=== PATIENT | female | born 1945 | race Hispanic/Latino ===

== ENCOUNTER 2019-03-03 10:38 | Emergency (ER) | payer OTHER ==
--- NOTE | 2019-03-03 12:41 | RAD REPORT ---
EXAM DESCRIPTION: CT - C Spine Wo Con - 03/03/2019 12:27 pm CLINICAL HISTORY: Left arm radiculopathy COMPARISON: None. TECHNIQUE: Computed axial tomography of the cervical spine were obtained with sagittal and coronal r econstruction images generated and reviewed. All CT scans are performed using dose optimization technique as appropriate and may include automated exposure control or mA/KV adjustment according to patient size. FINDINGS: A cervical fracture is not seen. Loss of the normal lordosis of the cervical spine may be secondary to muscle spasm. Slight anterior subluxation C3 on C4. Spondylosis C4-5 resulting mild left foraminal stenosis Disc bulge and osteophytes C5-6 results in moderate left foraminal stenosis thecal sac measures 8 mil limeters Disc bulge and osteophytes at C6-7 narrow the thecal sac is 7 millimeters. Moderate bilateral foramin al stenosis IMPRESSION: A cervical fracture is not seen. 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
--- NOTE | 2019-03-03 13:30 | ER ---
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 Denies fever and cough. Transition of care: patient was not received from another setting of care. Onset of symptoms was February 24, 2019. Risk Assessment: Do you want to hurt yourself or someone else? Patient reports no desire to harm self or others. Initial Sepsis Screen: Does the patient meet any 2 criteria? No. Patient's initial sepsis screen is negative. Does the patient have a suspected source of infection? No. Patient's initial sepsis screen is negative. Care prior to arrival: None. 11:03 Method Of Arrival: Ambulatory sv 11:03 Acuity: SOCO 3 sv 11:08 Note science interpreter used #[id number]. sv Triage Assessment: 11:03 General: Appears in no apparent distress. uncomfortable, Behavior is calm, cooperative, sv appropriate for age. Pain: Complains of pain in left zygomatic area, left cheek, left mandible and left arm and left neck. Neuro: Level of Consciousness is awake, alert, obeys commands, Gait is steady. Respiratory: Respiratory effort is even, unlabored. Historical: - Allergies: 11:07 No Known Allergies; sv - PMHx: 11:07 Thyroid problem; Diabetes - NIDDM; sv - PSHx: 11:07 Pacemaker; sv - Immunization history:: Flu vaccine status is unknown. - Social history:: Smoking status: unknown. - Ebola Screening: : No symptoms or risks identified at this time. Screenin:59 Abuse screen: Denies threats or abuse. Denies injuries from another. Nutritional mg2 screening: No deficits noted. Tuberculosis screening: No symptoms or risk factors identified. Fall Risk None identified. Assessment: 12:30 General: Appears in no apparent distress. comfortable, Behavior is calm, cooperative. mg2 Pain: Complains of pain in arm, and face. Neuro: Level of Consciousness is awake, alert, obeys commands, Oriented to person, place, time, situation. Cardiovascular: Capillary refill < 3 seconds Patient's skin is warm and dry. Respiratory: Airway is patent Respiratory effort is even, unlabored, Respiratory pattern is regular, symmetrical. GI: No signs and/or symptoms were reported involving the gastrointestinal system. : No signs and/or symptoms were reported regarding the genitourinary system. EENT: No signs and/or symptoms were reported regarding the EENT system. Derm: Skin is intact, is healthy with good turgor, Skin is pink, warm \T\ dry. normal. Musculoskeletal: Circulation, motion, and sensation intact. Capillary refill < 3 seconds. Vital Signs: 11:07 BP 151 / 87; Pulse 78; Resp 16; Temp 98; Pulse Ox 98% ; Weight 68.04 kg; Height 5 ft. 3 sv in. (160.02 cm); Pain 10/10; 12:30 BP 135 / 78; Pulse 81; Resp 18; Temp 98; Pulse Ox 100% on R/A; mg2 13:45 BP 134 / 78; Pulse 80; Resp 18; Temp 98; Pulse Ox 100% on R/A; mg2 11:07 Body Mass Index 26.57 (68.04 kg, 160.02 cm) sv ED Course: 10:40 Patient arrived in ED. as 10:40 Pop Millan DO is Private Physician. as 11:06 Triage completed. sv 11:07 Arm band placed on. sv 11:59 Reji Venegas, RN is Primary Nurse. mg2 12:00 No provider procedures requiring assistance completed. Patient did not have IV access mg2 during this emergency room visit. 12:10 Musa Shirley MD is Attending Physician. kdr 12:29 CT C Spine In Process Unspecified. EDMS 13:28 Pop Millan DO is Referral Physician. kdr 13:44 Patient has correct armband on for positive identification. Pulse ox on. NIBP on. Door mg2 closed. Warm blanket given. Administered Medications: 13:43 Drug: predniSONE 40 mg Route: PO; mg2 13:43 Follow up: Response: No adverse reaction; Medication administered at discharge. mg2 13:43 Drug: Ibuprofen 600 mg Route: PO; mg2 13:43 Follow up: Response: No adverse reaction; Medication administered at discharge. mg2 Outcome: 13:29 Discharge ordered by . kdr 13:40 Discharged to home ambulatory. mg2 13:40 Condition: stable 13:40 Discharge instructions given to patient, Instructed on discharge instructions, follow mg2 up and referral plans. medication usage, Demonstrated understanding of instructions, follow-up care, medications, Prescriptions given X 2. 13:45 Patient left the ED. mg2 Signatures: Dispatcher [employer] EDKarissa Rhodes RN RN sv Musa Shirley MD MD kdr Martinez, Amelia as Gardose, Michele, RN RN mg2
--- NOTE | 2019-03-03 13:30 | EDPHYS ---
Physician Documentation [facility] Name: Nicolasa Dooley Age: 74 yrs Sex: Female : 1945 Arrival Date: 03/03/2019 Time: 10:40 Bed 23 Private MD: Himanshu Millanh ED Physician Musa Shirley HPI: 03/03 18:34 This 74 yrs old Female presents to ER via Ambulatory with complaints of Facial kdr Pain, Arm Pain. 18:34 The patient or guardian complains of pain, that is acute. The complaints affect the kdr anterior aspect of left shoulder, left axilla, left bicep, left antecubital area, dorsal aspect of left forearm, left wrist, left hand, posterior aspect of left shoulder, left tricep, left elbow, palmar aspect of left forearm, left upper arm and left forearm. Context: The problem was sustained at home, resulted from unknown cause. Onset: The symptoms/episode began/occurred gradually, 1 week(s) ago. Treatment prior to arrival includes: no previous treatment. Modifying factors: The symptoms are alleviated by nothing. the symptoms are aggravated by nothing. Associated signs and symptoms: The patient has no apparent associated signs or symptoms. Severity of symptoms: At their worst the symptoms were mild, moderate, just prior to arrival, in the emergency department the symptoms are unchanged. The patient has not experienced similar symptoms in the past. The patient has not recently seen a physician. The patient c/o persistent pain for about one week in her left neck, face, and arm for about a week or more. Nothing effects it and it is not relived by any action.. Historical: - Allergies: 11: No Known Allergies; sv - PMHx: 11:07 Thyroid problem; Diabetes - NIDDM; sv - PSHx: 11:07 Pacemaker; sv - Immunization history:: Flu vaccine status is unknown. - Social history:: Smoking status: unknown. - Ebola Screening: : No symptoms or risks identified at this time. ROS: 18:34 Constitutional: Negative for fever, chills, and weight loss, Eyes: Negative for injury, kdr pain, redness, and discharge, ENT: Negative for injury, pain, and discharge, Cardiovascular: Negative for chest pain, palpitations, and edema, Respiratory: Negative for shortness of breath, cough, wheezing, and pleuritic chest pain, Abdomen/GI: Negative for abdominal pain, nausea, vomiting, diarrhea, and constipation, Back: Negative for injury and pain, : Negative for injury, bleeding, discharge, and swelling, Skin: Negative for injury, rash, and discoloration, Neuro: Negative for headache, weakness, numbness, tingling, and seizure activity. Psych: Negative for depression, anxiety, suicide ideation, homicidal ideation, and hallucinations, Allergy/Immunology: Negative for hives, rash, and allergies, Endocrine: Negative for neck swelling, polydipsia, polyuria, polyphagia, and marked weight changes, Hematologic/Lymphatic: Negative for swollen nodes, abnormal bleeding, and unusual bruising. 18:34 Neck: Positive for pain at rest, Negative for injury or acute deformity, pain with movement, stiffness, swelling, swollen nodes, tenderness, bony tenderness. 18:34 MS/extremity: Positive for pain, of the left arm, Negative for decreased range of motion, deformity, paresthesias, puncture, swelling, tenderness, tingling. Exam: 18:34 Constitutional: This is a well developed, well nourished patient who is awake, alert, kdr and in no acute distress. Head/Face: Normocephalic, atraumatic. Eyes: Pupils equal round and reactive to light, extra-ocular motions intact. Lids and lashes normal. Conjunctiva and sclera are non-icteric and not injected. Cornea within normal limits. Periorbital areas with no swelling, redness, or edema. ENT: Nares patent. No nasal discharge, no septal abnormalities noted. Tympanic membranes are normal and external auditory canals are clear. Oropharynx with no redness, swelling, or masses, exudates, or evidence of obstruction, uvula midline. Mucous membranes moist. Neck: Trachea midline, no thyromegaly or masses palpated, and no cervical lymphadenopathy. Supple, full range of motion without nuchal rigidity, or vertebral point tenderness. No Meningismus. Chest/axilla: Normal chest wall appearance and motion. Nontender with no deformity. No lesions are appreciated. Cardiovascular: Regular rate and rhythm with a normal S1 and S2. No gallops, murmurs, or rubs. Normal PMI, no JVD. No pulse deficits. Respiratory: Lungs have equal breath sounds bilaterally, clear to auscultation and percussion. No rales, rhonchi or wheezes noted. No increased work of breathing, no retractions or nasal flaring. Abdomen/GI: Soft, non-tender, with normal bowel sounds. No distension or tympany. No guarding or rebound. No evidence of tenderness throughout. Back: No spinal tenderness. No costovertebral tenderness. Full range of motion. Skin: Warm, dry with normal turgor. Normal color with no rashes, no lesions, and no evidence of cellulitis. MS/ Extremity: Pulses equal, no cyanosis. Neurovascular intact. Full, normal range of motion. Neuro: Awake and alert, GCS 15, oriented to person, place, time, and situation. Cranial nerves II-XII grossly intact. Motor strength 5/5 in all extremities. Sensory grossly intact. Cerebellar exam normal. Normal gait. Psych: Awake, alert, with orientation to person, place and time. Behavior, mood, and affect are within normal limits. Vital Signs: 11:07 BP 151 / 87; Pulse 78; Resp 16; Temp 98; Pulse Ox 98% ; Weight 68.04 kg; Height 5 ft. 3 sv in. (160.02 cm); Pain 10/10; 12:30 BP 135 / 78; Pulse 81; Resp 18; Temp 98; Pulse Ox 100% on R/A; mg2 13:45 BP 134 / 78; Pulse 80; Resp 18; Temp 98; Pulse Ox 100% on R/A; mg2 11:07 Body Mass Index 26.57 (68.04 kg, 160.02 cm) sv MDM: 13:29 Patient medically screened. kdr 18:34 Data reviewed: vital signs, nurses notes, lab test result(s), radiologic studies. kdr Counseling: I had a detailed discussion with the patient and/or guardian regarding: the historical points, exam findings, and any diagnostic results supporting the discharge/admit diagnosis, lab results, radiology results, the need for outpatient follow up. ED course: CT results suggest nerve root impingement - recommended follow-up and MRI. The patient was not in any acute distress and thee was no neurological deficit in the effected arm. She was happy with the care provided and the plan for discharge and follow-up. 03/03 12:18 Order name: CT C Spine; Complete Time: 13:26 kdr Administered Medications: 13:43 Drug: predniSONE 40 mg Route: PO; mg2 13:43 Follow up: Response: No adverse reaction; Medication administered at discharge. mg2 13:43 Drug: Ibuprofen 600 mg Route: PO; mg2 13:43 Follow up: Response: No adverse reaction; Medication administered at discharge. mg2 Disposition: 03/03/19 13:29 Discharged to Home. 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 - Condition is Stable. - Discharge Instructions: Peripheral Neuropathy. - Prescriptions for Ibuprofen 600 mg Oral Tablet - take 1 tablet by ORAL route every 6 hours As needed take with food; 30 tablet. Medrol (Servando) 4 mg Oral Tablets, Dose Pack - take 1 tablet by ORAL route as directed - follow package instructions; 1 packet. - Medication Reconciliation Form, Thank You Letter form. - Follow up: Pop Millan DO; When: 2 - 3 days; Reason: Further diagnostic work-up, Recheck today's complaints, Continuance of care, Re-evaluation by your physician. - Problem is an ongoing problem. - Symptoms are unchanged. Signatures: Dispatcher [employer] Karissa Mayorga RN RN Musa Shirley MD MD [facility] Reji Venegas RN RN mg2 Corrections: (The following items were deleted from the chart) 13:45 13:29 03/03/2019 13:29 Discharged to Home. Impression: Peripheral Neuropathy - Cervical mg2 Spine - left arm. Condition is Stable. Forms are Medication Reconciliation Form, Thank You Letter, Antibiotic Education, Prescription Opioid Use. Follow up: Pop Millan; When: 2 - 3 days; Reason: Further diagnostic work-up, Recheck today's complaints, Continuance of care, Re-evaluation by your physician. Problem is an ongoing problem. Symptoms are unchanged. kdr
[2019-03-03] MEDS ORDERED: IBUPROFEN 200 MG TAB PO ONE ×2 (13:35→13:36)
[2019-03-03] MEDS ORDERED: predniSONE 20 MG TAB ONE (13:35)
[2019-03-03 16:21] VITALS: TEMP 98
[2019-03-03 16:22] VITALS: BP 134/78; O2SAT 100
--- OUTSIDE RECORDS SUMMARY | 2019-03-07 03:19 | XMS REPORT ---
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 Problem Sinusitis chronic, frontal J32.1 Active Assessment Allergic rhinitis, seasonal J30.2 Active Problem Diabetes type 2, controlled E11.9 Active Assessment Gastro-esophageal reflux K21.9 Active Assessment Cardiac pacemaker Z95.0 Active Problem History of thyroidectomy Z90.09 Active Problem Anemia, chronic disease D63.8 Active Problem Osteoarthritis of multiple joints M15.9 Active Problem Vitamin B 12 deficiency E53.8 Active Problem Allergic rhinitis, seasonal J30.2 Active Assessment Cervical radiculopathy M54.12 Active Assessment Benign essential HTN I10 Active Assessment Anemia, chronic disease D63.8 Active Assessment 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 Problem Female genital prolapse, unspecified N81.9 Active type Problem Cardiac pacemaker Z95.0 Active Assessment Diabetes type 2, controlled E11.9 Active Problem Gastro-esophageal reflux K21.9 Active Assessment History of thyroidectomy Z90.09 Active Problem Benign essential HTN I10 Active Medications Medication Code Code Instructions Start End Status Dosage System Date Date Metformin HCl [facility] 87918487574 1000 MG Orally Active 1 tablet Twice a day with meals Cozaar [facility] 77492794588 25 MG Orally Active 1 tablet Once a day Metformin HCl ND 48709395080 1000 MG Orally Active 1 tablet Twice a day with meals Cozaar [facility] 13251970769 25 MG Orally Active 1 tablet Once a day Ventolin HFA [facility] 79417195330 90 MCG/ACT Active 2 puffs as Inhalation needed every 6 hrs Fluticasone [facility] 76132664468 50 MCG/ACT Active USE TWO Propionate SPRAY(S) IN EACH NOSTRIL ONCE DAILY Ferrous Sulfate [facility] [address] 325 MG Orally Active not defined Flonase [facility] 96048118904 50 MCG/DOSE Active 1 spray in Nasally Once a each day nostril Levothyroxine [facility] 14221460302 88 MCG Orally Active 1 tablet Sodium Once a day on an empty stomach in the morning Vitamin D [facility] 42317138654 2000 UNIT Active 1 tablet Orally Once a day Results No Known Results Summary Purpose eClinicalWorks Submission
== END 2019-03-03 13:45 | disposition home or self-care (01) ==
LOC: ER 10:38
DX: G62.9 Polyneuropathy, unspecified (principal); Z95.0 Presence of cardiac pacemaker
CPT/HCPCS: 72125; 99284; J7512

== ENCOUNTER 2020-03-11 20:02 | Observation (INO) | payer OTHER ==
--- OUTSIDE RECORDS SUMMARY | 2020-03-11 20:05 | XMS REPORT ---
:1945 Author Organization [facility] Address [address] [place] [address] Care Team Providers Name Role Phone Millan Unavailable [phone] PROBLEMS Type Condition ICD9-CM PHN14-BS Onset Condition SNOMED Code Notes Code Code Dates Status Problem Female genital N81.9 Active 90724391 prolapse, unspecified type Problem Gastro-esophageal K21.9 Active 925417196 reflux Problem Cardiac pacemaker Z95.0 Active 607113613 Problem Calculus of kidney N20.2 Active 483156366 and ureter Problem Benign essential I10 Active 37805690 HTN Problem Osteoarthritis of M15.9 Active 463931523 multiple joints Problem Anemia, chronic D63.8 Active 103621449 disease Problem Allergic rhinitis, J30.2 Active 728574020 seasonal Problem Spondylosis of M47.812 Active 007358817 cervical joint Problem Thyroid cancer C73 Active 397230118 Problem Spondylosis of M47.812 Active 257708738 cervical spine Problem Post-operative E89.0 Active 73316177 hypothyroidism Problem Vitamin B 12 E53.8 Active 36974931 deficiency Problem Diabetes type 2, E11.9 Active 449933754 controlled Problem Sinusitis chronic, J32.1 Active 10388904 frontal Problem History of Z90.09 Active 953342841 thyroidectomy ALLERGIES Allergen (clinical drug Drug/Non Drug Allergy Reaction Allergy Type Onset Date Status ingredient) documented on EMR lisinopril Lisinopril(NDC Unknown Drug Allergy Active Code:[address]-26) ENCOUNTERS from 1945 to 2020-02-14 Encounter Location Date Provider Diagnosis [facility] [address], [place] [address] IMMUNIZATIONS Vaccine Route Administration Date Status Kenalog (Triamcinolone) Unknown November 10, 2019 Pending Kenalog (Triamcinolone) IM Intramuscular August 11, 2019 Adminis tered Kenalog (Triamcinolone) IM Intramuscular Dec 20, 2018 Adminis tered Kenalog (Triamcinolone) IM Intramuscular July 02, 2018 Adminis tered Kenalog (Triamcinolone) IM Intramuscular August 18, 2017 Adminis tered SOCIAL HISTORY Tobacco Use: Social History Observation Description Date Details (start date - stop date) Former Smoker Sex Assigned At : Social History Observation Description Sex Assigned At Unknown Alcohol Screen Question Answer Notes Did you have a drink containing alcohol in the past year? No Points 0 Interpretation Negative Tobacco Use/Smoking Question Answer Notes Are you a former smoker Additional Findings: Tobacco Non-User Ex-moderate cigarette smoker (10-19/day) REASON FOR REFERRAL No Information VITAL SIGNS No information MEDICATIONS Medication SIG (Take, Route, Start Date End Date Status Frequency, Duration) Vitamin D 2000 UNIT 1 tablet Orally Once a Active day for 30 day(s) Cozaar 25 MG 1 tablet Orally Once a Activ e day for 90 Ferrous Sulfate 325 MG Orally Activ e Fluticasone Propionate 50 USE TWO SPRAY(S) IN EACH Active MCG/ACT NOSTRIL ONCE DAILY Levothyroxine Sodium 88 MCG 1 tablet on an empty Active stomach in the morning Orally Once a day for 90 Flonase 50 MCG/DOSE 1 spray in each nostril Active Nasally Once a day for 30 days Losartan Potassium 25 MG Take 1 tablet by mouth Active once daily for 30 Simvastatin 5 MG 1 tablet in the evening Active Orally Once a day for 90 days Ibuprofen 600 MG 1 tablet with food or No t-Taking milk as needed Orally PRN Ventolin HFA 90 MCG/ACT 2 puffs as needed Active Inhalation every 6 hrs for 30 days Metformin HCl 1000 MG 1 tablet with a meal Active Orally twice a day for 30 day(s) PROCEDURES No Information RESULTS No Results REASON FOR VISIT refill metformin MEDICAL (GENERAL) HISTORY Type Description Date Medical History Benign essential HTN Medical History Post-operative hypothyroidism Medical History Diabetes type 2, controlled Medical History Osteoarthritis of multiple joints Medical History Anemia, chronic disease Medical History Vitamin B 12 deficiency Medical History Gastro-esophageal reflux Medical History Allergic rhinitis, seasonal Medical History Calculus of kidney and ureter Medical History Thyroid cancer Medical History Cardiac pacemaker Surgical History Thyroidectomy Surgical History Lung biopsy Surgical History Implantation of cardiac pacemaker Goals Section No Information Health Concerns No Information MEDICAL EQUIPMENT No Information MENTAL STATUS No Information FUNCTIONAL STATUS No Information ASSESSMENTS No Information PLAN OF TREATMENT Medication Medication Name Sig Start Date Stop Date Simvastatin 5 MG 1 tablet in the evening Orally Once a day for 90 days Vitamin D 2000 UNIT 1 tablet Orally Once a day for 30 day(s) Flonase 50 MCG/DOSE 1 spray in each nostril Nasally Once a day for 30 days Ventolin HFA 90 MCG/ACT 2 puffs as needed Inhalation every 6 hrs for 30 days Ferrous Sulfate 325 MG Orally Metformin HCl 1000 MG 1 tablet with a meal Orally twice a day for 30 day(s) Levothyroxine Sodium 88 MCG 1 tablet on an empty stomach in the morning Orally Once a day for 90 Cozaar 25 MG 1 tablet Orally Once a day for 90 Losartan Potassium 25 MG Take 1 tablet by mouth once daily for 30 Next Appt Details Provider Name:[facility] Millan, 2020-02-22 0 2:30:00 PM, [address], [place], [address], Insurance Providers Payer Name Payer Payer Insured Name Patient Coverage Covera ge End Address Phone Relationship to Start Date Manuel e Insured [employer] [address] [address] [phone] Fr Miha self [address] [facility] [address] [id number]
--- OUTSIDE RECORDS SUMMARY | 2020-03-11 20:05 | XMS REPORT ---
:1945 Author Organization e[employer]Works Care Team Providers Name Role Phone Pop Millan Provider Role Unavailable Allergies No Known Allergies Problems Problem Type Condition Code Onset Dates Condition Statu s Problem Thyroid cancer C73 Active Problem Anemia, chronic disease D63.8 Acti ve Problem Osteoarthritis of multiple joints M15.9 Active Problem Spondylosis of cervical joint M47.812 Active Problem History of thyroidectomy Z90.09 Act fani Problem Spondylosis of cervical spine M47.812 Active Problem Vitamin B 12 deficiency E53.8 Acti ve Problem Allergic rhinitis, seasonal J30.2 Active Problem Sinusitis chronic, frontal J32.1 A ctive Problem Diabetes type 2, controlled E11.9 Active Problem Gastro-esophageal reflux K21.9 Act fani Problem Benign essential HTN I10 Active Problem Female genital prolapse, N81.9 Act fani unspecified type Problem Calculus of kidney and ureter N20.2 Active Problem Cardiac pacemaker Z95.0 Active Problem 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
--- OUTSIDE RECORDS SUMMARY | 2020-03-11 20:05 | XMS REPORT | Continuity of Care Document ---
:1945 Author Organization [facility] t Address [address] [place] [address] Care Team Providers Name Role Phone Cesia RAMOS, S Primary Care Physician Sangita RAMOS, J. 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 Her current serum Tgb is 0.6 and her neck ultrasoun d does not show any evidence of recurrenc e. I plan to see her again in one year for her next surveilla vte visit. She was advised to call or email anytime for any questions or problems. 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 She is recoverin g from a COVID 19 infection and has persisten t myalgias, sinusitis , headaches and reduce sense of smell and taste. She has diffus chest pains but no palpitati ons. No fever. She plans to see an ENT to evaluate the sinusitis . Allergies, Adverse Reactions, Alerts Allergy Allergy Status Severity Reaction(s) Onset Inactive Treating Comm ents Source Name Type Date Date Clinician Lisinopr Propensi Active Other (See 2018-04 Jayson waller ty to Comments) 0-10 Methodi adverse 00:00: st reaction 00 s to drug Lisinopr Adverse Active Info Not [facility] Reaction Available [facility] Family History Family Member Diagnosis Comments Start Date Stop Date Source [facility] Natural sister Hypothyroidism [place] [facility] Social History Social Habit Start Date Stop Date Quantity Comments Source History of Cigarette Smoker [place] [facility] tobacco use Sex Assigned At [facility] ethodist Tobacco use and 2019-12-15 2019-12-[address] [facility] ethodist exposure 00:00:00 00:00:00 Alcohol intake 2019-12-15 2019-12-15 [facility] 00:00:00 non-drinker of alcohol (finding) Smoking Status Start Date Stop Date Source Former smoker 2019-12-15 00:00:00 2019-12-15 00:00:00 [place] [facility] Medications Ordered Filled Start Stop Current Ordering Indication Dosage Frequency Signature Comments Components Source Medication Medication Date Date Medication? Clinician (SIG) Name Name losartan Yes 25mg QD Take 25 mg Livier ston (COZAAR) 25 8-20 by mouth Meth rocael MG tablet 09:50: daily. st 55 ferrous Yes 325mg QD Take 325 [place] on sulfate 325 8-20 mg by Methodi (65 FE) MG 09:50: mouth st tablet 55 daily with breakfast. guaifenesin Yes 1{tbl} Q.5D Take 1 [place] /dextrometh 8-20 tablet by Met field orphan 09:50: mouth 2 st (MUCINEX DM 55 (two) ORAL) times a day as needed. levothyroxi Yes Postoperati 88ug QD Take 1 [place] ne 8-20 ve tablet (88 Methodi (SYNTHROID) 00:00: hypothyroid mcg total) st 88 mcg 00 ism by mouth tablet every morning. levothyroxi 2020- No Postoperati 88ug QD Take 1 [place] ne 8-22 08-20 ve tablet (88 Methodi (SYNTHROID, 00:00: 00:00 hypothyroid mcg total) st LEVOXYL) 88 00 :00 ism by mouth mcg tablet every morning. metFORMIN Yes 1{tbl} Q.5D Take 1 [place] (GLUCOPHAGE 9-20 tablet by Met field ) 1,000 mg 00:00: mouth 2 st tablet 00 (two) times a day. fluticasone Yes 1{spray QD 1 spray by [place] (FLONASE) 9-20 } Each Nare Metho di 50 00:00: route st mcg/actuati 00 daily. on nasal spray Metformin Metformin Yes Pop [address] [facility] [address] HCl HCl Millan with meals [facility] Flonase Flonase Yes Pop [address] [facility] Millan each [facility] Ventolin Ventolin Yes Pop [address] [facility] HFA HFA Millan needed [facility] Ferrous Ferrous Yes Pop not [facility] Sulfate Sulfate Millan defined [facility] Ibuprofen Ibuprofen Yes Pop [address] [facility] [address] Millan with food [facility] or milk as [facility] Simvastatin Simvastatin Yes Pop [address] [facility] [address] Millan in the [facility] Vitamin D Vitamin D Yes Pop [address] [facility] [address] Millan [facility] Cozaar Cozaar Yes Pop 1 tablet [facility]an [facility] Fluticasone Fluticasone Yes Pop USE TWO [facility] Propionate Propionate Millan SPRAY(S) [facility] IN EACH [facility] NOSTRIL l ONCE DAILY Outpati ent Clinics Levothyroxi Levothyroxi Yes Pop [address] [facility] ne Sodium ne Sodium Millan on an Sanam es - empty Memoria stomach in l the Outpati morning ent Clinics Procedures Procedure Date / Time Performed Performing Clinician [facility] US SOFT TISSUE HEAD NECK 2019-12-09 17:00:00 Kyle Vargas T4, FREE 2019-12-08 08:11:00 Kyle Vargas THYROID STIMULATING 2019-12-08 08:11:00 Kyle Vargas Buddhist HORMONE THYROGLOBULIN 2019-12-08 08:11:00 Kyle Vargas Plan of Care Planned Activity Planned Date Details Comments Source Future Scheduled 2019-11-26 INFLUENZA VACCINE [place] [facility] Test 00:00:00 [code = INFLUENZA VACCINE] Future Scheduled 2009-01-28 65+ PNEUMOCOCCAL H[facility] Test 00:00:00 VACCINE (1 of 1 - PPSV23) [code = 65+ PNEUMOCOCCAL VACCINE (1 of 1 - PPSV23)] Future Scheduled 1994-01-28 COLONOSCOPY SCREENING [facility] Test 00:00:00 [code = COLONOSCOPY SCREENING] Future Scheduled 1994-01-28 SHINGLES VACCINES (#1) H wojciech [facility] Test 00:00:00 [code = SHINGLES VACCINES (#1)] Encounters Start End Encounter Admission Attending Care Care Encounter Source Date/Time Date/Time Type Type Clinicians Facility Department ID 2020-02-22 2020-02-22 [id number] 2020-02-14 2020-02-14 Out[facility] [id number] [facility] 2020-01-05 2020-01-05 [facility] [id number] [facility] 09:48:00 09:48:00 compareit4me [facility] Medicine Medicine Outpati ent Clinics 2019-12-15 2019-12-15 Outpatient SANGITA [facility] [id number] [place] 00:00:00 00:00:00 KYLE Gillis [facility] 2019-12-09 2019-12-09 Outpatient SANGITA [facility] [id number] [place] 00:00:00 00:00:00 KYLE Ortiz [facility] 2019-11-24 2019-11-24 [facility] [id number] [facility] 14:30:00 14:30:00 [place] [employer] [facility] - Drive [facility] Medicine Outpati ent Clinics 2019-10-31 2019-10-31 [facility] [id number] 09:25:00 09:25:00 t [employer] [facility] - Drive [facility] Outpati ent [facility] 2019-10-31 2019-10-31 Telephone Elias, RUST [id number] 00:00:00 00:00:00 [facility] [id number] [place] [id number] Professio [phone] nal 044 Office [address] One 2019-10-28 2019-10-28 Telephone Anene, RUST [id number] 00:00:00 00:00:00 [facility] [id number] [place] [id number] Professio [phone] nal 044 Office Building One 2019-10-27 2019-10-27 Urgent Pob1, Acute RUST [id number] 08:03:16 08:45:16 [facility] [id number] [place] [id number] Professio [phone] nal 044 Office Building One 2019-10-20 2019-10-20 [facility] [id number] 08:36:00 08:36:00 t 500px s - [facility] Medicine Outpati ent Clinics 2019-08-29 2019-08-29 [facility] [id number] 14:32:00 14:32:00 t [place] Wanderu s - Drive [facility] Medicine Outpati ent Clinics 2019-08-29 2019-08-29 [facility] [id number] 11:08:00 11:08:00 [place] [address] Luke s - Drive [facility] Medicine l Medicine Outpati ent Clinics 2019-08-11 2019-08-11 [facility] [id number] 08:00:00 08:00:00 [place] [address] Luke [address] - Drive [facility] Medicine l Medicine Outpati ent Clinics 2019-05-12 2019-05-12 [facility] [id number] 11:00:00 11:00:00 [place]ER[place] Luke s - Drive [facility] Medicine l Medicine Outpati ent Clinics 2019-05-02 2019-05-02 [facility] [id number] 10:46:00 10:46:00 [place] - Drive [facility] Medicine l Medicine Outpati ent Clinics 2019-04-29 2019-04-29 [facility] [id number] 15:18:00 15:18:00 [place] - Drive [facility] Medicine l Medicine Outpati ent Clinics 2019-03-14 2019-03-14 [facility] [id number] 09:15:00 09:15:00 [place] [facility] - [facility] Medicine l Medicine Outpati ent Clinics 2019-03-07 2019-03-07 [facility] [id number] 10:00:00 10:00:00 [place] [facility] - Drive [facility] Medicine l Medicine Outpati ent Clinics 2019-03-03 2019-03-03 [facility] [id number] 08:46:00 08:46:00 [place] - Drive [facility] Medicine l Medicine Outpati ent Clinics 2019-02-03 2019-02-03 [facility] [id number] 14:45:00 14:45:00 [place] - [facility] Medicine l Medicine Outpati ent Clinics 2018-12-20 2018-12-20 [facility] [id number] 15:15:00 15:15:00 [place] - Drive [facility] Medicine l Medicine Outpati ent Clinics 2018-11-04 2018-11-04 [facility] [id number] [address] 13:15:00 13:15:00 [place] [address] Luke [place] - Drive [facility] Medicine Medicine Outpati ent Clinics 2018-07-29 2018-07-29 [facility] [id number] 09:30:00 09:30:00 [place] [address] Luke [place] - Drive [facility] Medicine l Medicine Outpati ent Clinics 2018-07-02 2018-07-02 [facility] [id number] 11:15:00 11:15:00 [place] [address] Luke [place] - Drive [facility] Medicine Medicine Outpati ent Clinics 2018-05-27 2018-05-27 [facility] [id number] 13:45:00 13:45:00 [place] - Drive [facility] l Medicine Outpati ent Clinics 2018-04-30 2018-04-30 [facility] [id number] 08:30:00 08:30:00 [place] [employer] [facility] - Drive [facility] Medicine Medicine Outpati ent Clinics 2018-04-29 2018-04-29 [facility] [id number] 11:08:00 11:08:00 [place] [address] Luke s - Drive [facility] Medicine Outpati ent Clinics 2018-01-26 2018-01-26 [facility] [id number] 10:30:00 10:30:00 [place] [employer] [facility] - Drive [facility] Medicine Medicine Outpati ent Clinics 2017-10-29 2017-10-29 [facility] [id number] 09:44:00 09:44:00 [place] - Drive [facility] Medicine Medicine Outpati ent Clinics 2017-10-12 2017-10-12 [facility] [id number] 14:19:00 14:19:00 [place] [employer] [facility] - Drive [facility] Medicine Outpati ent Clinics Results Test Description Test Time Test Comments Results Result Sourc e Comments US Soft Tissue 2019-11-26 [facility] Head Neck [address] 13:46:28 12/14/2019 1:49 PM CDTStudy:US SOFT TISSUE HEAD NECKHistory:C73 Malignant neoplasm of thyroid gland, E89.0 Postprocedural hypothyroidism, Follicular Thyroid CarcinomaCOMPARISON :November 19, 2018IMPRESSION:Dayana garvin ultrasound of the neck.The soft tissue nodule in the right thyroid bed stable since 2016 measures up to 1.2 cm and may be from either thyroid tissue or scar.. No new nodules are seen. The visualized lymph nodes in both sides of the neck are not enlarged.[facility]-[id number]
--- OUTSIDE RECORDS SUMMARY | 2020-03-11 20:05 | XMS REPORT ---
:1945 Author Organization [facility] Address [address], 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 Active 243918514 multiple joints Problem Anemia, chronic D63.8 Active 318480185 disease Problem Allergic rhinitis, J30.2 Active 182741330 seasonal Problem Spondylosis of M47.812 Active 990731213 cervical joint Problem Thyroid cancer C73 Active 211131515 Problem Spondylosis of M47.812 Active 797734873 cervical spine Problem Post-operative E89.0 Active 92530389 hypothyroidism Problem Vitamin B 12 E53.8 Active 21249739 deficiency Problem Diabetes type 2, E11.9 Active 807562503 controlled Problem Sinusitis chronic, J32.1 Active 22776313 frontal Problem History of Z90.09 Active 264186777 thyroidectomy ALLERGIES Allergen (clinical drug Drug/Non Drug Allergy Reaction Allergy Type Onset Date Status ingredient) documented on EMR lisinopril Lisinopril(NDC Unknown Drug Allergy Active Code:[address]-76) ENCOUNTERS from 1945 to 2020-02-25 Encounter Location Date Provider Diagnosis [facility] [place] [address] [place] Jan, [facility] Monty Diabetes type 2, Drive Family [address], controlled E11.9 ; [place] [address] Benign essenti al HTN I10 ; Cervical radiculopathy M 54.12 ; Post-operative hypothyroidism E89.0 ; Anemia, chronic disease D63.8 ; Allergi c rhinitis, seaso nal J30.2 ; Gastro-esophage al reflux K21.9 ; Cardiac pacemaker Z95.0 ; History of thyroidectomy Z 90.09 ; Elevated alkali ne phosphatase lev el R74.8 ; Chronic sinus itis, unspecified loc ation J32.9 and Need for influenza vacci nation Z23 IMMUNIZATIONS Vaccine Route Administration Date Status FluAD IM Intramuscular Feb 22, 2020 Administered Kenalog (Triamcinolone) Unknown November 10, 2019 Pending [...] REASON FOR REFERRAL No Information VITAL SIGNS Height 62 in Jan, Weight 145.4 lbs Jan, Temperature 97.0 degrees Fahrenheit Jan, BMI 26.59 kg/m2 Jan, Oximetry 100 % Jan, Respiratory Rate 16 /min Jan, Blood pressure systolic 135 mm Hg Jan, Blood pressure diastolic 73 mm Hg Jan, MEDICATIONS Medication SIG (Take, Route, Start Date End Date Status Frequency, Duration) Ferrous Sulfate 325 MG Orally Activ e Metformin HCl 1000 MG 1 tablet with a meal Active Orally twice a day for 30 day(s) Metformin HCl 1000 MG 1 tablet with meals Active Orally Twice a day for 90 Simvastatin 5 MG 1 tablet in the evening Active Orally Once a day for 90 days Vitamin D 2000 UNIT 1 tablet Orally Once a Active day for 30 day(s) Ibuprofen 600 MG 1 tablet with food or No t-Taking milk as needed Orally PRN Ventolin HFA 90 MCG/ACT 2 puffs as needed Active Inhalation every 6 hrs for 30 days Flonase 50 MCG/DOSE 1 spray in each nostril Active Nasally Once a day for 30 days Fluticasone Propionate 50 USE TWO SPRAY(S) IN EACH Active MCG/ACT NOSTRIL ONCE DAILY Cozaar 25 MG 1 tablet Orally Once a Activ e day for 90 Levothyroxine Sodium 88 MCG 1 tablet on an empty Active stomach in the morning Orally Once a day for 90 Losartan Potassium 25 MG Take 1 tablet by mouth Active once daily for 30 PROCEDURES No Information RESULTS No Results REASON FOR VISIT 3 [facility] lab f/u. In office. MEDICAL (GENERAL) HISTORY Type Description Date Medical [...] No Information FUNCTIONAL STATUS No Information ASSESSMENTS Encounter Date Diagnosis Notes Jan, History of thyroidectomy (ICD-10 - Z90.0 9) Jan, Cardiac pacemaker (ICD-10 - Z95.0) Jan, Chronic sinusitis, unspecified location (ICD-10 - J32.9) Jan, Elevated alkaline phosphatase level (ICD -10 - R74.8) Jan, Anemia, chronic disease (ICD-10 - D63.8) Jan, Gastro-esophageal reflux (ICD-10 - K21.9 ) Jan, Allergic rhinitis, seasonal (ICD-10 - J3 0.2) Jan, Benign essential HTN (ICD-10 - I10) Jan, Diabetes type 2, controlled (ICD-10 - E1 1.9) Jan, Need for influenza vaccination (ICD-10 - Z23) Jan, Post-operative hypothyroidism (ICD-10 - E89.0) Jan, Cervical radiculopathy (ICD-10 - M54.12) PLAN OF TREATMENT Medication Medication Name Sig Start Date Stop Date Ferrous Sulfate 325 MG Orally Cozaar 25 MG 1 tablet Orally Once a day for 90 Levothyroxine Sodium 88 MCG 1 tablet on an empty stomach in the morning Orally Once a day for 90 Flonase 50 MCG/DOSE 1 spray in each nostril Nasally Once a day for 30 days Ventolin HFA 90 MCG/ACT 2 puffs as needed Inhalation every 6 hrs for 30 days Vitamin D 2000 UNIT 1 tablet Orally Once a day for 30 day(s) Metformin HCl 1000 MG 1 tablet with meals Orally Twice a day for 90 Simvastatin 5 MG 1 tablet in the evening Orally Once a day for 90 days Treatment Notes Assessment Notes Clinical Notes Diabetes type 2, controlled Worsening--> Improving. Continu e current diabetic regimen. Will conduct 3-month trial. Start simvastatin 5 mg and titrate as tolerated. Side effect discussed. Instructed to make dietary changes. Diabetes Education Diabetes is a disorder that disrupts the way your body uses glucose (sugar). It is a chronic medication condition that requires regular monitoring and treatment throughout your life. Treatment includes: lifestyle modification, self-care measures, and medication. Fortunately, these treatments can keep the blood sugar levels close to normal and minimize the risk of developing complications. The primary blood test to measure the progress of diabetes is the Hemoglobin A1c. Normal levels is less than 7.0 but less than 6.5 is considered excellent control. Fasting blood sugars should be in the range of 80-120 while random blood sugars should range below 200 especially after meals. Carbohydrate (sugar) intake for diabetics should be below 45 grams per meal and 15 grams per snack. Diabetic preventive care is vital to prevent complications, so it is important to have yearly diabetic eye and foot exams with specialists. If your diabetes is not controlled, then contact your doctor to further address.Medication may need to be adjusted and/or added. Benign essential HTN Controlled. HTN Education This is a condition that puts at risk for heart attack, stroke, and kidney disease. Lifestyle modification, low fat/low salt diet, exercise, low alcohol intake and medication is utilized to help control your BP. Untreated HTN increases the strain on the heart and arteries, eventually causing organ damage.Normal BP is less than 140/90. High BP is greater than 140/90. If your BP is not controlled, call your doctor. Medication may need to be adjusted and/or added. Compliance with medication is vital. If you have chest pain, shortness of breath, severe nausea/vomiting, fatigue, and other symptoms, you will need to contact your doctor or go to the ER immediately to address. Cervical radiculopathy DIscussed DDX. Education given. Will obtain XR then MRI. Post-operative hypothyroidism Post-Operative. Managed by End o. Will cont on 88 mcg. Education given. Goal TSH <1. Anemia, chronic disease ASymptomatic. Education given. Allergic rhinitis, seasonal Refill given. Due to minimal relief with foli-tlu-ccdjpfv medication and recent flare will give Kenalog IM in office for therapeutic reason. Side effect panel discussed. Instructed patient to monitor EGD and blood pressure as being mildly elevated for several days. Patient agreeable plan. Gastro-esophageal reflux Stable with OTC medication. Elevated alkaline phosphatase level . Discussed differentia l diagnosis. We will repeat again in 3 months. If elevated will obtain further work-up. Education given. Asymptomatic Chronic sinusitis, unspecified Affecting ADLs. Minimal reli ef location with wevp-yxp-blffagb medication. Instructed patient to call insurance and locate ENT and will refer thereafter. Treatment Notes Test Name Order Date Lipid Panel With LDL/HDL Ratio 2020-02-25 Thyroid Panel With TSH 2020-02-25 Ferritin, Serum 2020-02-25 Microalbumin/Creat Ratio, Random Ur 2020-02-25 Hemoglobin A1c 2020-02-25 Comp. Metabolic Panel (14) (CMP) 2020-02-25 CBC With Differential/Platelet 2020-02-25 Next Appt Details 3 Months + AMW + Labs 1 week Reason: Provider Name:Pop Springel, 2020-05-17 0 9:00:00 AM, [address], [place], [address], Provider Name:Pop Millan, 2020-05-24 0 9:00:00 AM, [address], [address], [place], [address], Insurance Providers Payer Name Payer Payer Insured Name Patient Coverage Covera ge End Address Phone Relationship to Start Date Manuel e Insured [employer] [address] [address] [phone] Fr Miah self [address] [place] [id number] [place] [id number]
--- OUTSIDE RECORDS SUMMARY | 2020-03-11 20:05 | XMS REPORT | Clinical Summary ---
:1945 Author Organization [facility] Address [address] [place] [address] Care Team Providers Name Role Phone Mike Callaway MD Primary Care Provider [phone] Allergies Active Allergy Reactions Severity Noted Date Comments Lisinopril Other (See Comments) 02/03/2019 Medications Medication Sig Dispensed Refills Start Date End Date Status metFORMIN Take 1 0 01/15/2016 Active (GLUCOPHAGE) 1,000 tablet by mg tablet mouth 2 (two) times a day. fluticasone 1 spray by 0 01/15/2016 Active (FLONASE) 50 Each Nare mcg/actuation nasal route spray daily. losartan (COZAAR) 25 Take 25 mg 0 Active MG tablet by mouth daily. ferrous sulfate 325 Take 325 mg 0 Active (65 FE) MG tablet by mouth daily with breakfast. guaifenesin/dextrome Take 1 0 Active thorphan (MUCINEX DM tablet by ORAL) mouth 2 (two) times a day as needed. 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 hypothyroidism levothyroxine Take 1 90 tablet 4 12/16/2018 Disco ntinued (SYNTHROID, LEVOXYL) tablet (88 0 (Reorder) 88 mcg mcg total) tabletIndications: by mouth Follicular thyroid every carcinoma (HCC), morning. 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 She had a lung nodule of follicular thyroid cancer removed in 201 6. Her current serum Tgb is 0.6 and her neck ultrasound does not show any evidence of recurrence. I plan to see her again in one year for her next surveillance visit. Sh e was advised to call or email anytime for any questions or problems. 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 She is recovering from a COVID 19 infection and has persistent myalgias, sinusitis, headaches and reduce sense of smell and taste. She has diffus chest pains but no palpitations. No fever. She plans to see an ENT to evaluate the sinusitis. Encounters Date Type Specialty Care Team Description 12/15/2019 Telemedicine Endocrinology Kyle Vargas Follicular thyroid carcinoma (HCC) (Primary Dx); MD Danyelle Postoperative h ypothyroidism 12/09/2019 Hospital Encounter Radiology Kyle Vargasi cular thyroid carcinoma (HCC); MD Danyelle Postoperative h ypothyroidism 12/09/2019 Travel 12/06/2019 Orders Only Gastroenterology Bianca Fried Follicu lar thyroid carcinoma (HCC) (Primary Dx); RN Postoperative h ypothyroidism after 03/11/2019 Surgical History Surgery Date Site/Laterality Comments CHOLECYSTECTOMY HYSTERECTOMY CATARACT EXTRACTION CARDIAC CATHETERIZATION Pacemake r LUNG SURGERY 08/30/2015 THYROIDECTOMY 04/27/1985 - 04/26/1986 Medical History Medical History Date Comments Disease of thyroid gland Type 2 diabetes mellitus (HCC) Thyroid cancer (HCC) HTN (hypertension) Hypothyroidism 30 yr Family History Medical History Relation Name Comments Diabetes Mother Carmelita russ Stroke Mother Carmelita russ Hypothyroidism Sister Relation Name Status Comments Mother Carmelita murrayo Sister Social History Tobacco Use Types Packs/Day Years Used Date Former Smoker Cigarettes 0 2 Smokeless Tobacco: Never Used Alcohol Use Drinks/Week oz/Week Comments No Sex Assigned at Date Recorded Not on file Last Filed Vital Signs Not on file Plan of Treatment Date Type Specialty Care Team Description 12/13/2020 Office Visit Endocrinology Kyle Vargas MD [address] [facility] [address] [place], [place] [address] [phone] Health Maintenance Due Date Last Done Comments COLONOSCOPY SCREENING 01/28/1994 SHINGLES VACCINES (#1) 01/28/1994 65+ PNEUMOCOCCAL VACCINE (1 of 1 - PPSV23) 01/28/2009 INFLUENZA VACCINE 11/26/2019 Procedures Procedure Name Priority Date/Time Associated Diagnosis Comme nts US SOFT TISSUE HEAD Routine 12/09/2019 5:00 Follicular thyroi d Results for this NECK PM CDT carcinoma (HCC) procedure are in Postoperative the results hypothyroidism section. THYROGLOBULIN Routine 12/08/2019 8:11 Follicular thyroid Resu lts for this AM CDT carcinoma (HCC) procedure are in Postoperative the results hypothyroidism section. THYROID STIMULATING Routine 12/08/2019 8:11 Follicular thyroi d Results for this HORMONE AM CDT carcinoma (HCC) procedure are in Postoperative the results hypothyroidism section. T4, FREE Routine 12/08/2019 8:11 Follicular thyroid Resul ts for this AM CDT carcinoma (HCC) procedure are in Postoperative the results hypothyroidism section. after 03/11/2019 Results US Soft Tissue Head Neck (12/09/2019 5:00 PM CDT) Specimen Narrative Performed At Study:US SOFT TISSUE HEAD NECK [facility] History:C73 Malignant neoplasm of thyroid gland, E89.0 Postprocedural hypothyroidism, Follicular Thyroid Carci noma COMPARISON:November 19, 2018 IMPRESSION: Limited ultrasound of the neck. The soft tissue nodule in the right thyroid bed stable since 2016 measures up to 1.2 cm and may be from either thyroid t issue or scar.. No new nodules are seen. The visualized lymph nodes in priscila th sides of the neck are not enlarged. [facility]-[id number] Procedure Note Interface, Radiology Results Incoming - 12/14/2019 1:49 PM CDT Study:US SOFT TISSUE HEAD NECK History:C73 Malignant neoplasm of thyroi d gland, E89.0 Postprocedural hypothyroidism, Follicular Thyroid Carcinoma COMPARISON:November 19, 2018 IMPRESSION: Limited ultrasound of the neck. The soft tissue nodule in the right thyr oid bed stable since 2016 measures up to 1.2 cm and may be from either thyroid tissue or scar.. No new nodules are seen. The visualized lymph nodes in both sides of the neck are not enlarged. [facility]-[id number] Performing Organization Address City/State/ZIP Code Phon e Number [facility] [address] [place] [address] Thyroglobulin (12/08/2019 8:11 AM CDT) Thyroglobulin 0.6 (L) ng/mL [facility] Comment: MollyWatrJUNITO Reference Range: G II Intact Thyroid 2.8-40.9 Athyrotic <0.1 Note: Abnormal flagging is based on the reference interval for patients with intact thyroid. This test was performed using the Angelita [place] chemiluminescent method. Values obtained from different assay methods cannot be used interchangeably. Thyroglobulin levels, regardless of value, should not be interpreted as absolute evidence of the presence or absence of disease. Comment [facility] Comment: DIAGNOSTICSJUNITO G II Thyroglobulin antibodies (TGAB) interfere with thyroglobulin (TG) assays; therefore, TGAB assay should always be performed in conjunction with a TG assay. For additional information, please refer to http://education.VitalTrax/faq/SDU296 (This link is being provided for informational/ educational purposes only.) Specimen Blood Narrative Performed At FASTING:YES [facility] FASTING: YES Resulting Agency Comment Performing Organization Information: Site ID: [id number] Name: [facility] Address: [address] [place] [id number] Director: Dr. Refugio vega Performing Organization Address [facility] Phon e Number [employer] [address] Thyroid stimulating hormone (12/08/2019 8:11 AM CDT) Pathologist [facility] TSH 0.48 0.40 - 4.50 mIU/L [facility] Specimen Blood Narrative Performed At FASTING:YES [facility] FASTING: YES Resulting Agency Comment Performing Organization Information: Site ID: RGA Name: [facility] Address: [address] [place] [phone] Director: Refugio Jones Performing Organization Address [facility] Phon e Number [employer] [address] [address] T4, free (12/08/2019 8:11 AM CDT) Pathologist Sig nature T4, free 1.5 0.8 - 1.8 ng/dL [facility] [place] Specimen Blood Narrative Performed At FASTING:YES [facility] FASTING: YES Resulting Agency Comment Performing Organization Information: Site ID: RGA Name: [employer] Address: [address] [place] [phone] Director: Rfeugio Jones Performing Organization Address City/State/ZIP Code Phon e Number [facility] [place] [id number] after 03/11/2019 Advance Directives For more information, please contact: [phone] Type Date Recorded 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
[2020-03-11 20:57] LABS: Absolute Lymphocytes (CBC) 1.8 K/uL (0.7-4.9); Basophils % 1.2 % (0-1.3); Hematocrit 36.1 % (36.0-45.0); Lymphocytes % 28.8 % (15.3-44.8); MPV 9.2 fL (7.6-11.3); RBC Red Blood Cell Count 4.59 M/uL (3.86-4.86)
[2020-03-11 21:01] LABS: Protime INR 1.11
[2020-03-11] MEDS ORDERED: ASPIRIN 81 MG CHEWABLE TABLET ONE (21:07)
[2020-03-11] MEDS ORDERED: MORPHINE 2 MG/ML SYR ONE (21:07)
[2020-03-11] MEDS ORDERED: ONDANSETRON 4 MG/2 ML VIAL ONE (21:08)
[2020-03-11 21:25] LABS: ALT/SGPT 23 U/L (12-78); AST/SGOT 26 U/L (15-37); Albumin 3.9 g/dL (3.4-5.0); Alkaline Phosphatase 125 U/L (45-117); BUN Blood Urea Nitrogen 17 mg/dL (7-18); Bicarbonate 26 mmol/L (21-32); Bilirubin Direct 0.1 mg/dL (0-0.2); Bilirubin Total 0.3 mg/dL (0.2-1.0); Glucose Level 122 mg/dL (74-106); Magnesium 1.8 mg/dL (1.8-2.4); NT PRO-BNP 109 pg/mL (<450); Potassium 4.1 mmol/L (3.5-5.1); Protein, Total 7.4 g/dL (6.4-8.2); Sodium Level 141 mmol/L (136-145); Troponin (Emerg Dept Use Only) < 0.02 ng/mL (0.0-0.045)
[2020-03-11 21:44] LABS: Lipase 114 U/L (73-393)
--- NOTE | 2020-03-11 22:00 | EDPHYS ---
Physician Documentation [facility] Name: Nicolasa Dooley Age: 75 yrs Sex: Female : 1945 Arrival Date: 03/11/2020 Time: 20:07 Bed 13 Private MD: ED Physician Rusty Oconnor HPI: 03/11 21:32 This 75 yrs old Female presents to ER via Ambulatory with complaints of mh7 Nausea, Shoulder Pain, Neck Pain, >24Hrs Old. 21:33 The patient or guardian reports chest pain that is located primarily in the anterior mh7 chest wall, left. Onset: today. The pain radiates to the left arm. Associated signs and symptoms: Pertinent positives: nausea, Pertinent negatives: abdominal pain, cough, diaphoresis, dizziness, headache, lower extremity pain, lower extremity swelling, lightheadedness, near syncope, palpitations, recent travel, shortness of breath, syncope, vomiting. The chest pain is described as a pressure. Duration: The patient or guardian reports multiple episodes, that are intermittent, that wax and wane, with no pattern. Modifying factors: The symptoms are alleviated by nothing. the symptoms are aggravated by nothing. Severity of pain: At its worst the pain was moderate today, in the emergency department the pain is unchanged. Historical: - Allergies: 20:21 No Known Allergies; ca1 - PMHx: 20:21 Diabetes - NIDDM; Thyroid problem; ca1 20:22 Hypertension; ca1 - PSHx: 20:21 Pacemaker; Cholecystectomy; Thyroidectomy; ca1 - Immunization history:: Adult Immunizations up to date. - Social history:: Smoking status: Patient denies any tobacco usage or history of. ROS: 21:33 Constitutional: Negative for fever, chills, and weight loss, Eyes: Negative for injury, mh7 pain, redness, and discharge, ENT: Negative for injury, pain, and discharge, Respiratory: Negative for shortness of breath, cough, wheezing, and pleuritic chest pain, : Negative for injury, bleeding, discharge, and swelling, Skin: Negative for injury, rash, and discoloration, Neuro: Negative for headache, weakness, numbness, tingling, and seizure, Psych: Negative for depression, anxiety, suicide ideation, homicidal ideation, and hallucinations, Allergy/Immunology: Negative for hives, rash, and allergies, Endocrine: Negative for neck swelling, polydipsia, polyuria, polyphagia, and marked weight changes, Hematologic/Lymphatic: Negative for swollen nodes, abnormal bleeding, and unusual bruising. Exam: 21:33 Head/Face: Normocephalic, atraumatic. Eyes: Pupils equal round and reactive to light, mh7 extra-ocular motions intact. Lids and lashes normal. Conjunctiva and sclera are non-icteric and not injected. Cornea within normal limits. Periorbital areas with no swelling, redness, or edema. Neck: Trachea midline, no thyromegaly or masses palpated, and no cervical lymphadenopathy. Supple, full range of motion without nuchal rigidity, or vertebral point tenderness. No Meningismus. Chest/axilla: Normal chest wall appearance and motion. Nontender with no deformity. No lesions are appreciated. Cardiovascular: Regular rate and rhythm with a normal S1 and S2. No gallops, murmurs, or rubs. Normal PMI, no JVD. No pulse deficits. Respiratory: Lungs have equal breath sounds bilaterally, clear to auscultation and percussion. No rales, rhonchi or wheezes noted. No increased work of breathing, no retractions or nasal flaring. Abdomen/GI: Soft, non-tender, with normal bowel sounds. No distension or tympany. No guarding or rebound. No evidence of tenderness throughout. Back: No spinal tenderness. No costovertebral tenderness. Full range of motion. Skin: Warm, dry with normal turgor. Normal color with no rashes, no lesions, and no evidence of cellulitis. MS/ Extremity: Pulses equal, no cyanosis. Neurovascular intact. Full, normal range of motion. Neuro: Awake and alert, GCS 15, oriented to person, place, time, and situation. Cranial nerves II-XII grossly intact. Motor strength 5/5 in all extremities. Sensory grossly intact. Cerebellar exam normal. Normal gait. Psych: Awake, alert, with orientation to person, place and time. Behavior, mood, and affect are within normal limits. 21:33 Constitutional: The patient appears in no acute distress, alert, awake, uncomfortable. Vital Signs: 20:19 BP 147 / 65; Pulse 71; Resp 16 S; Temp 97.2(TE); Pulse Ox 100% on R/A; Weight 68.04 kg ca1 (R); Height 5 ft. 0 in. (152.40 cm) (R); Pain 6/10; 21:46 BP 137 / 60; Pulse 60; Resp 17 S; Pulse Ox 99% on R/A; jd3 22:24 BP 144 / 58; Pulse 60; Resp 15 S; Pulse Ox 98% on R/A; jd3 23:40 BP 138 / 58; Pulse 60; Resp 14 S; Pulse Ox 97% on R/A; jd3 03/12 07:00 BP 118 / 54; Pulse 60; Resp 18; Pulse Ox 99% on R/A; ph 08:00 BP 127 / 50; Pulse 60; Resp 16; Temp 97.4; Pulse Ox 98% on R/A; ph 03/11 20:19 Body Mass Index 29.29 (68.04 kg, 152.40 cm) ca1 MDM: 03/11 21:57 Differential diagnosis: abnormal EKG, acute myocardial infarction, acute pericarditis, mh7 anxiety, coronary artery disease chest wall pain, congestive heart failure costochondritis, myocarditis, pericarditis, pleurisy, pneumonia, pneumothorax. HEART Score: History: Moderately Suspicious (1), ECG: Non specific repolarization disturbance / LBTB / PM (1), Age: > or = 65 years (2), Risk Factors: 1 or 2 risk factors (1), [Hypertension] [DM] Troponin: < or = 1 x Normal Limit (0), Total Score = 5. The patient was given aspirin in the Emergency Department. Data reviewed: vital signs, nurses notes, lab test result(s), cardiac enzymes, CBC, electrolytes, EKG, radiologic studies, plain films. Data interpreted: Pulse oximetry: on room air is 99 %. Interpretation: normal. Counseling: I had a detailed discussion with the patient and/or guardian regarding: the historical points, exam findings, and any diagnostic results supporting the discharge/admit diagnosis, the presence of at least one elevated blood pressure reading (>120/80) during this emergency department visit, lab results, radiology results, the need for further work-up and treatment in the hospital. Response to treatment: the patient's symptoms have markedly improved after treatment. 21:59 Patient medically screened. [facility] 03/11 20:47 Order name: Basic Metabolic Panel; Complete Time: 21:53 [facility] 03/11 20:47 Order name: CBC with Diff; Complete Time: 21:31 d3 03/11 20:47 Order name: LFT's; Complete Time: 21:53 d3 03/11 20:47 Order name: Magnesium; Complete Time: 21:53 d3 03/11 20:47 Order name: NT PRO-BNP; Complete Time: 21:53 d3 03/11 20:47 Order name: PT-INR; Complete Time: 21:31 d3 03/11 20:47 Order name: Troponin (emerg Dept Use Only); Complete Time: 21:53 d3 03/11 21:39 Order name: Lipase; Complete Time: 21:53 [facility] 03/11 21:56 Order name: COVID-19 la1 03/12 01:09 Order name: SARS-COV-2 RT PCR [facility] 03/12 03:07 Order name: Troponin I [facility] 03/12 05:52 Order name: CBC with Automated Diff [facility] 03/12 06:07 Order name: Basic Metabolic Panel [facility] 03/11 20:47 Order name: XRAY Chest (1 view) [facility] 03/11 20:47 Order name: EKG; Complete Time: 20:48 d3 03/11 20:47 Order name: Cardiac monitoring; Complete Time: 20:47 [facility] 03/11 20:47 Order name: EKG - Nurse/Tech; Complete Time: 20:47 [facility] 03/11 20:47 Order name: IV Saline Lock; Complete Time: 20:47 [facility] 03/11 20:47 Order name: Labs collected and sent; Complete Time: 20:47 [facility] 03/11 20:47 Order name: O2 Per Protocol; Complete Time: 20:47 [facility] 03/12 06:07 Order name: Lipid Profile [facility] 03/12 06:07 Order name: C-Reactive Protein [facility] 03/12 06:07 Order name: T4 Free [facility] 03/12 06:07 Order name: Magnesium [facility] 03/12 06:07 Order name: Thyroid Stimulating Hormone [facility] 03/12 06:07 Order name: Ferritin [facility] 03/11 20:47 Order name: O2 Sat Monitoring; Complete Time: 20:47 j Administered Medications: 21:00 Drug: Aspirin Chewable Tablet 324 mg Route: PO; jd3 22:00 Follow up: Response: No adverse reaction jd3 21:00 Drug: morphine 2 mg Route: IVP; Site: right antecubital; jd3 22:00 Follow up: Response: No adverse reaction; RASS: Alert and Calm (0) jd3 21:00 Drug: Zofran (Ondansetron) 4 mg Route: IVP; Site: right antecubital; jd3 22:00 Follow up: Response: No adverse reaction jd3 Disposition: 03/11/20 21:59 Hospitalization ordered by Leonard Kerr for Observation. Preliminary diagnosis is Chest pain, unspecified. - Bed requested for Intensive Care Unit. - Status is Observation. ph - Condition is Stable. - Problem is new. - Symptoms have improved. Signatures: Dispatcher [employer] EDMS Pierre Johnston RN RN Briaan Bucio RN RN Vernell Torres RN PRETTY Conor Desouza RN RN jd3 Acob, Cheryl, RN RN [facility] Rusty Oconnor MD MD mh7 Corrections: (The following items were deleted from the chart) 21:39 21:32 LIPASE+C.LAB.BRZ ordered. [facility] EDOK 22:54 21:59 Hospitalization Ordered by Leonard Kerr MD for Observation. Preliminary cg diagnosis is Chest pain, unspecified. Bed requested for Telemetry/MedSurg (observation). Status is Observation. Condition is Stable. Problem is new. Symptoms have improved. [facility] 03/12 01:10 03/11 22:54 03/11/2020 21:59 Hospitalization Ordered by Leonard Kerr MD for Observation. Preliminary diagnosis is Chest pain, unspecified. Bed requested for Telemetry/MedSurg (observation). Status is Observation. Condition is Stable. Problem is new. Symptoms have improved. 03/12 06:01 01:10 03/11/2020 21:59 Hospitalization Ordered by Leonard Kerr MD for Observation. cg Preliminary diagnosis is Chest pain, unspecified. Bed requested for [facility] ER HOLD. Status is Observation. Condition is Stable. Problem is new. Symptoms have improved. sg 08:53 06:01 03/11/2020 21:59 Hospitalization Ordered by Leonard Kerr MD for Observation. ph Preliminary diagnosis is Chest pain, unspecified. Bed requested for Intensive Care Unit. Status is Observation. Condition is Stable. Problem is new. Symptoms have improved.
--- NOTE | 2020-03-11 22:00 | ER ---
Nurse's Notes [facility] Name: Nicolasa Dooley Age: 75 yrs Sex: Female : 1945 Arrival Date: 03/11/2020 Time: 20:07 Bed 13 Private MD: Diagnosis: Chest pain, unspecified Presentation: 03/11 20:19 Chief complaint: Patient states: Nausea, pain on shoulder, between the shoulders ca1 radiating tot he L side of chest and L arm, Upper abdominal pain started earlier today. Denies fever/diarrhea. Coronavirus screen: Client denies travel out of the [place] in the last 14 days. nausea, Client presents with at least one sign or symptom that may indicate coronavirus-19. Standard/surgical mask placed on the client. Provider contacted for isolation considerations. Ebola Screen: Patient negative for fever greater than or equal to 101.5 degrees Fahrenheit, and additional compatible Ebola Virus Disease symptoms Patient denies exposure to infectious person. Patient denies travel to an Ebola-affected area in the 21 days before illness onset. No symptoms or risks identified at this time. Initial Sepsis Screen: Does the patient meet any 2 criteria? No. Patient's initial sepsis screen is negative. Does the patient have a suspected source of infection? No. Patient's initial sepsis screen is negative. Risk Assessment: Do you want to hurt yourself or someone else? Patient reports no desire to harm self or others. Onset of symptoms was March 11, 2020. 20:19 Method Of Arrival: Ambulatory ca1 20:19 Acuity: SOCO 3 ca1 Historical: - Allergies: 20:21 No Known Allergies; ca1 - PMHx: 20:21 Diabetes - NIDDM; Thyroid problem; ca1 20:22 Hypertension; ca1 - PSHx: 20:21 Pacemaker; Cholecystectomy; Thyroidectomy; ca1 - Immunization history:: Adult Immunizations up to date. - Social history:: Smoking status: Patient denies any tobacco usage or history of. Screenin:26 Abuse screen: Denies threats or abuse. Nutritional screening: No deficits noted. jd3 Tuberculosis screening: No symptoms or risk factors identified. Fall Risk Ambulatory Aid- None/Bed Rest/Nurse Assist (0 pts). Gait- Normal/Bed Rest/Wheelchair (0 pts) Mental Status- Oriented to own ability (0 pts). Total Arellano Fall Scale indicates No Risk (0-24 pts). Assessment: 20:24 General: Appears in no apparent distress. uncomfortable, Behavior is calm, cooperative, jd3 appropriate for age. Pain: Complains of pain in back Pain radiates to chest and left shoulder Quality of pain is described as aching, radiating. Neuro: Level of Consciousness is awake, alert, obeys commands, Oriented to person, place, time, situation. Cardiovascular: Heart tones present Capillary refill < 3 seconds Patient's skin is warm and dry. Rhythm is. Respiratory: Airway is patent Respiratory effort is even, unlabored, Respiratory pattern is regular, symmetrical, Breath sounds are clear bilaterally. Denies cough, shortness of breath. GI: Abdomen is round non-distended, Abd is soft and non tender X 4 quads. Reports nausea, Patient currently denies normal bowel habits, abdominal pain, constipation, diarrhea, vomiting. : No signs and/or symptoms were reported regarding the genitourinary system. EENT: No signs and/or symptoms were reported regarding the EENT system. Derm: Skin is intact, Skin is dry, Skin is normal, Skin temperature is warm. Musculoskeletal: Circulation, motion, and sensation intact. Range of motion: intact in all extremities. 21:46 Reassessment: Patient appears in no apparent distress at this time. No changes from jd3 previously documented assessment. Patient and/or family updated on plan of care and expected duration. Pain level reassessed. Patient is alert, oriented x 3, equal unlabored respirations, skin warm/dry/pink. 22:24 Reassessment: Patient appears in no apparent distress at this time. Patient and/or jd3 family updated on plan of care and expected duration. Pain level reassessed. Patient is alert, oriented x 3, equal unlabored respirations, skin warm/dry/pink. awaiting hospitalization. 23:09 Reassessment: Patient appears in no apparent distress at this time. Patient and/or jd3 family updated on plan of care and expected duration. Pain level reassessed. Patient is alert, oriented x 3, equal unlabored respirations, skin warm/dry/pink. report given to Katt OLSEN. awaiting COVID results prior to admission. 23:40 Reassessment: Patient appears in no apparent distress at this time. No changes from jd3 previously documented assessment. Patient and/or family updated on plan of care and expected duration. Pain level reassessed. Patient is alert, oriented x 3, equal unlabored respirations, skin warm/dry/pink. 03/12 07:00 Reassessment: Patient appears in no apparent distress at this time. Patient and/or ph family updated on plan of care and expected duration. Pain level reassessed. Pt resting w/ eyes closed, even and unlabored respirations. 07:54 Reassessment: report given to RN. zb 08:45 Reassessment: Patient appears in no apparent distress at this time. Patient and/or ph family updated on plan of care and expected duration. Pain level reassessed. Patient is alert, oriented x 3, equal unlabored respirations, skin warm/dry/pink. Pt eating breakfast, tolerating well, will be taken to floor by nail technician teacher after finished w/ meal. Vital Signs: 03/11 20:19 BP 147 / 65; Pulse 71; Resp 16 S; Temp 97.2(TE); Pulse Ox 100% on R/A; Weight 68.04 kg ca1 (R); Height 5 ft. 0 in. (152.40 cm) (R); Pain 6/10; 21:46 BP 137 / 60; Pulse 60; Resp 17 S; Pulse Ox 99% on R/A; jd3 22:24 BP 144 / 58; Pulse 60; Resp 15 S; Pulse Ox 98% on R/A; jd3 23:40 BP 138 / 58; Pulse 60; Resp 14 S; Pulse Ox 97% on R/A; jd3 03/12 07:00 BP 118 / 54; Pulse 60; Resp 18; Pulse Ox 99% on R/A; ph 08:00 BP 127 / 50; Pulse 60; Resp 16; Temp 97.4; Pulse Ox 98% on R/A; ph 03/11 20:19 Body Mass Index 29.29 (68.04 kg, 152.40 cm) ca1 ED Course: 03/11 20:07 Patient arrived in ED. bp1 20:19 Rusty Oconnor MD is Attending Physician. mh7 20:21 Triage completed. ca1 20:22 Conor Desouza, PRETTY is Primary Nurse. jd3 20:22 Arm band placed on right wrist. ca1 20:26 Patient has correct armband on for positive identification. Bed in low position. Call jd3 light in reach. Side rails up X 1. Adult w/ patient. ballistics tester on. Pulse ox on. NIBP on. 20:27 EKG done, by reliability technologist. reviewed by Rusty Oconnor MD. jd3 20:48 Inserted saline lock: 20 gauge in right antecubital area, using aseptic technique. jd3 Blood collected. 21:07 XRAY Chest (1 view) In Process Unspecified. EDCA 21:59 Leonard Kerr MD is Hospitalizing Provider. [facility] 23:09 No provider procedures requiring assistance completed. Patient admitted, IV remains in jd3 place. Administered Medications: 21:00 Drug: Aspirin Chewable Tablet 324 mg Route: PO; jd3 22:00 Follow up: Response: No adverse reaction jd3 21:00 Drug: morphine 2 mg Route: IVP; Site: right antecubital; jd3 22:00 Follow up: Response: No adverse reaction; RASS: Alert and Calm (0) jd3 21:00 Drug: Zofran (Ondansetron) 4 mg Route: IVP; Site: right antecubital; jd3 22:00 Follow up: Response: No adverse reaction jd3 Outcome: 21:59 Decision to Hospitalize by Provider. [facility] 23:10 Condition: stable j 23:10 Instructed on the need for admit, Demonstrated understanding of instructions. 23:39 Admitted to Med/surg accompanied by marcelino, via stretcher, room 406, with chart, Report jose armando called to Katt OLSEN 03/12 08:53 Patient left the ED. ph Signatures: Dispatcher [employer] EDCA Briana Bucio ph D, RN RNavies, Jonathon, RN RN jd3 Acob, Cheryl RN PRETTY [facility] Myra Middleton Maurice, MD MD 7 Saumya Salinas RN RN zb Corrections: (The following items were deleted from the chart) 03/11 20:49 20:24 General: Appears in no apparent distress. uncomfortable, jose armando suárez 23:10 23:09 Reassessment: Patient appears in no apparent distress at this time. Patient jd3 and/or family updated on plan of care and expected duration. Pain level reassessed. Patient is alert, oriented x 3, equal unlabored respirations, skin warm/dry/pink. report given to Katt suárez 23:10 23:09 Reassessment: Patient appears in no apparent distress at this time. Patient jdorys and/or family updated on plan of care and expected duration. Pain level reassessed. Patient is alert, oriented x 3, equal unlabored respirations, skin warm/dry/pink. report given to Katt OLSEN. awaiting admission jose armando
--- NOTE | 2020-03-11 22:57 | P.HP ---
Certification for Inpatient Patient admitted to: Observation With expected LOS: <2 Midnights Patient will require the following post-hospital care: None Practitioner: I am a practitioner with admitting privileges, knowledge of patient current condition, hospital course, and medical plan of care. Services: Services provided to patient in accordance with Admission requirements found in Title 42 Section 412.3 of the Code of Federal Regulations <Rene Calderón - Last Filed: 03/11/20 22:53> Patient History Date of Service: 03/11/20 Primary Care Provider: Dr. Millan Reason for admission: Chest pain History of Present Illness: 75-year-old female with history of hypertension, diabetes mellitus type 2, hypothyroidism, pacemaker placement presents emergency department for chest pain. Patient reports that the last 1 week she has been having this pain become worse today. Patient reports Burning pain to left chest, neck and pressure- like pain between shoulder blades and back. Patient reports some mild associated shortness of breath and dizziness. Pain is not exacerbated or relieved by anything in particular. Patient was worked up in the emergency room, EKG shows paced rhythm, chest x-ray and cardiac enzymes unremarkable. ED provider wishes to admit patient under observation for chest pain. - Past Medical/Surgical History -: Diabetes mellitus type 2 -: Hypertension -: Hypothyroidism -: Pacemaker placement -: Hysterectomy -: Cholecystectomy Psychosocial/ Personal History: Patient lives with the family - Family History Mother -: Kidney disease - Social History Smoking Status: Former smoker Alcohol use: No CD- Drugs: No Caffeine use: No Place of Residence: Home <Rene Calderón - Last Filed: 03/11/20 22:53> Date of Service: 03/13/20 <Leonard Kerr - Last Filed: 03/13/20 14:30> Allergies No Known Allergies Allergy (Verified 05/22/15 09:14) Home Medications: Metformin HCl [Glucophage] 1,000 mg PO BID 02/26/15 Levothyroxine [Synthroid] 88 mcg PO [id number] 05/22/15 Losartan Potassium [Cozaar] 1 tab PO DAILY 03/12/20 Simvastatin 1 tab PO BEDTIME 03/12/20 Review of Systems 10-point ROS is otherwise unremarkable Cardiovascular: Chest Pain, Light Headedness <Rene Calderón - Last Filed: 03/11/20 22:53> Physical Examination - Physical Exam General: Alert, In no apparent distress HEENT: Atraumatic, PERRLA, Mucous membr. moist/pink Neck: Supple, 2+ carotid pulse no bruit, No LAD Respiratory: Clear to auscultation bilaterally, Normal air movement Cardiovascular: Regular rate/rhythm, Normal S1 S2, Other (Pacemaker in place) Gastrointestinal: Normal bowel sounds, No tenderness Musculoskeletal: No tenderness Integumentary: No rashes Neurological: Normal gait, Normal speech, Normal strength at 5/5 x4 extr, Normal tone, Normal affect - Studies Laboratory Data (last 24 hrs) 03/11/20 21:31: Lipase Cancelled 03/11/20 20:30: PT 13.1 H, INR 1.11 03/11/20 20:30: WBC 6.4, Hgb 12.1, Hct 36.1, Plt Count 150 L 03/11/20 20:30: Sodium 141, Potassium 4.1, BUN 17, Creatinine 0.69, Glucose 122 H, Magnesium 1.8, Total Bilirubin 0.3, AST 26, ALT 23, Alkaline Phosphatase 125 H, Lipase 114 <Rene Calderón - Last Filed: 03/11/20 22:53> Assessment and Plan - Plan Assessment Chest pain rule out ACS Diabetes mellitus type 2 Hypertension Hypothyroidism Plan Chest pain rule out ACS: Monitor on telemetry, trend troponin. Cardiology consult in place. Daily aspirin, statin, lipid panel with morning labs. Diabetes mellitus type 2: A.c. HS Accu-Cheks scale insulin therapy. Hypertension: Obtain and continue home medications. Hypothyroidism: Obtain and continue home medications, thyroid panel with morning labs. Discharge Plan: Home Plan to discharge in: 24 Hours - Advance Directives Does patient have a Living Will: No Does patient have a Durable POA for Healthcare: No - Code Status/Comfort Care Code Status Assessed: Yes (Full code) Critical Care: No Time Spent Managing Pts Care (In Minutes): 55 <Rene Calderón - Last Filed: 03/11/20 22:53> - Plan Plan of care reviewed with Rene Calderón. Agree with plan as noted above. <Leonard Kerr - Last Filed: 03/13/20 14:30>
[2020-03-12] MEDS ORDERED: MORPHINE 2 MG/ML SYR IV PRN (02:01)
[2020-03-12] MEDS ORDERED: ONDANSETRON 4 MG/2 ML VIAL IV PRN (02:01)
[2020-03-12] MEDS ORDERED: ACETAMINOPHEN 500 MG TAB PO PRN (02:01)
[2020-03-12] MEDS ORDERED: TRAMADOL HCL 50 MG TAB PO PRN (02:01)
[2020-03-12] MEDS ORDERED: MELATONIN 5 MG TABLET PO PRN (02:01)
[2020-03-12 05:46] LABS: Absolute Lymphocytes (CBC) 1.5 K/uL (0.7-4.9); Basophils % 1.2 % (0-1.3); Hematocrit 34.6 % (36.0-45.0); Lymphocytes % 29.9 % (15.3-44.8); MPV 9.3 fL (7.6-11.3); RBC Red Blood Cell Count 4.39 M/uL (3.86-4.86)
[2020-03-12 06:06] LABS: BUN Blood Urea Nitrogen 15 mg/dL (7-18); Bicarbonate 28 mmol/L (21-32); C-Reactive Protein 6.09 mg/L (<3.00); Ferritin 9.2 ng/mL (8-388); Glucose Level 98 mg/dL (74-106); HDL Cholesterol 57 mg/dL (40-60); LDL Cholesterol, Calculated 50 (<130); Magnesium 1.8 mg/dL (1.8-2.4); Potassium 4.1 mmol/L (3.5-5.1); Sodium Level 140 mmol/L (136-145); Thyroid Stimulating Hormone 0.362 uIU/mL (0.360-3.740)
[2020-03-12] MEDS: INSULIN -REGULAR HUMAN 50 UNIT/0.5 ML ML SQ SCH ×4 (07:30→21:00)
[2020-03-12] MEDS ORDERED: PNEUMOCOCCAL VACCINE 0.5 ML IMVAC ONE (08:00)
[2020-03-12] MEDS ORDERED: INFLUENZA VACCINE (for 3y+) 0.5 ML DOSE IMVAC ONE (08:00)
[2020-03-12] MEDS ORDERED: MAGNESIUM SULFATE 1 gm IVPB 1 GM/100 ML BAG IV ONE (08:11)
--- NOTE | 2020-03-12 08:23 | RAD REPORT ---
EXAM DESCRIPTION: Kathy Single View03/11/2020 9:07 pm CLINICAL HISTORY: Chest pain COMPARISON: 2018 FINDINGS: The lungs appear clear of acute infiltrate. The heart is borderline enlarged. Pacemaker l jose are in place. IMPRESSION: No acute abnormalities displayed
[2020-03-12] MEDS: VITAMIN D 1000 UNIT TAB PO SCH (08:56)
[2020-03-12] MEDS: ZINC SULFATE 220 MG CAP PO SCH (08:56)
[2020-03-12] MEDS: ASCORBIC ACID 500 MG TABLET PO SCH ×3 (08:56→21:52)
[2020-03-12] MEDS: ASPIRIN EC 81 MG TAB PO SCH (08:56)
[2020-03-12] MEDS: ENOXAPARIN 40 MG/0.4 ML SQ SCH (08:56)
--- NOTE | 2020-03-12 15:26 | P.PN ---
Subjective Date of Service: 03/12/20 Primary Care Provider: Dr. Millan Chief Complaint: Chest pain Subjective: Improving (has some improvement of pain, but still persists slightly lightheaded this afternoon) Review of Systems 10-point ROS is otherwise unremarkable Physical Examination - Vital Signs Temperature: 97.0 F Blood Pressure: 93/53 Pulse: 66 Respirations: 13 Pulse Ox (%): 98 - Physical Exam General: Alert, In no apparent distress HEENT: Sclerae nonicteric Respiratory: Clear to auscultation bilaterally, Normal air movement Cardiovascular: No edema, Regular rate/rhythm Gastrointestinal: Soft and benign, Non-distended, No tenderness Musculoskeletal: No tenderness Integumentary: No rashes Neurological: Normal strength at 5/5 x4 extr - Studies Laboratory Data (last 24 hrs) 03/11/20 21:31: Lipase Cancelled 03/11/20 20:30: PT 13.1 H, INR 1.11 03/11/20 20:30: WBC 6.4, Hgb 12.1, Hct 36.1, Plt Count 150 L 03/11/20 20:30: Sodium 141, Potassium 4.1, BUN 17, Creatinine 0.69, Glucose 122 H, Magnesium 1.8, Total Bilirubin 0.3, AST 26, ALT 23, Alkaline Phosphatase 125 H, Lipase 114 Assessment & Plan Physician Review Additional Text: Chest pain rule out ACS COVID-19+ Diabetes mellitus type 2 Hypertension Hypothyroidism Plan Chest pain rule out ACS: -continue telemetry, troponin negative x2 awaiting 3rd -cardiology consulted, concern given patient's EKG, stress test ordered -awaiting echocardiogram COVID19+ -patient seems asymptomatic at this time, however CRP was obtained and elevated -holding off on steroids for stress test and echocardiogram -repeat CRP, begin steroids if increases Diabetes mellitus type 2: A.c. HS Accu-Cheks scale insulin therapy. Hypertension: patient with hypotension this morning, slightly lightheaded / fatigued nursing reports patient may have taken her home meds on her own and she's been NPO for possible procedure monitor closely, may need fluid bolus Hypothyroidism: continue home synthroid Dispo: anticipate dc in 24-48hrs, pending echocardiogram
--- NOTE | 2020-03-12 19:38 | CON ---
Date of Consultation: 03/12/2020 Reason For Consultation: Chest pain. History Of Present Illness: A 75-year-old female with the past medical history of diabetes, hyperten aquilino, pacemaker in place, presented with a chest pain, left-sided, not related to exertion. No short ness of breath. Claimed that for the last 1 week, she has been having on and off pain, that is worse today. Past Medical History: As outlined above in the HPI. Medications: Refer to reconciliation sheet for detailed list. Allergies: NO KNOWN DRUG ALLERGIES. Social History: She does not smoke or drink. Does not use any drugs. Family History: No premature coronary artery disease or cancer. Review of Systems: All systems reviewed and they were negative except mentioned in the HPI. Physical Examination: Vital Signs: Temperature is 97.0, pulse 66, breathing 17, blood pressure 134/54, saturating 100% on room air. General: Pleasant elderly female, in no apparent distress. Head and Neck: Pupils are equal, reactive to light. Intact eye movements. No JVD. No cervical lym phadenopathy. Neck: Supple. Thyroid is not enlarged. Lungs: Clear to auscultation bilaterally. No rhonchi, rales, or crackles. No accessory muscle use. Heart: Regular rate and rhythm. No extra sounds. Abdomen: Soft, nontender. Bowel sounds positive. No organomegaly. No masses or hernia. No rigidi ty or rebound. Extremities: No clubbing or cyanosis. Intact pulses. Skin: No rashes. Neurologic: Alert, awake, oriented x3. No acute focal deficits appreciated. Investigations: Troponin x3 are negative. Creatinine 0.69, sodium 141. C-reactive protein is 6. H emoglobin 11.7. The chest x-ray is negative and COVID-19 is positive. Assessment And Plan: Chest pain. There are EKG abnormalities with T-wave inversion laterally. Card iac enzymes are negative and chest pain is atypical with a positive COVID-19. I recommend to obtain echocardiogram and a nuclear stress test. Monitor on telemetry and serial sets of cardiac enzymes. If stress test is abnormal, then coronary angiogram to follow or if the troponin goes up. I would recommend to obtain D-dimer. Also if it is elevated, CTA PE protocol should be considered. Thank you for this consultation. /MODL Voice ID: [id number] Report ID: [id number]
[2020-03-12] MEDS ORDERED: HOME MED 1 EA UNK (Simvastatin [Simvastatin] 1 TAB) PO SCH (21:00)
[2020-03-12] MEDS ORDERED: ATORVASTATIN 40 MG TAB PO SCH (21:00)
[2020-03-13 05:19] LABS: BUN Blood Urea Nitrogen 15 mg/dL (7-18); Bicarbonate 29 mmol/L (21-32); C-Reactive Protein 5.98 mg/L (<3.00); Glucose Level 110 mg/dL (74-106); Magnesium 1.9 mg/dL (1.8-2.4); Potassium 4.2 mmol/L (3.5-5.1); Sodium Level 139 mmol/L (136-145)
[2020-03-13] MEDS ORDERED: LEVOTHYROXINE SOD 0.088 MG TAB PO SCH (06:00)
[2020-03-13 06:01] VITALS: BMI 28.5
[2020-03-13] MEDS: INSULIN -REGULAR HUMAN 50 UNIT/0.5 ML ML SQ SCH ×2 (07:30→11:30)
[2020-03-13] MEDS: ASPIRIN EC 81 MG TAB PO SCH (08:08)
[2020-03-13] MEDS: VITAMIN D 1000 UNIT TAB PO SCH (08:08)
[2020-03-13] MEDS: ASCORBIC ACID 500 MG TABLET PO SCH ×2 (08:08→13:18)
[2020-03-13] MEDS: ZINC SULFATE 220 MG CAP PO SCH (08:09)
[2020-03-13] MEDS: ENOXAPARIN 40 MG/0.4 ML SQ SCH (08:29)
[2020-03-13 08:31] VITALS: TEMP 97
[2020-03-13] MEDS ORDERED: REGADENOSON 0.4 MG/5 ML SYR IV ONE (09:18)
--- NOTE | 2020-03-13 10:45 | RAD REPORT ---
EXAM DESCRIPTION: CT - Chest For Pe Angio - 03/13/2020 10:28 am CLINICAL HISTORY: Elevated D-dimer COMPARISON: Lung Biopsy Perc w/CT dated 05/22/2015; THORAX WO CONTRAST dated 03/15/2015 TECHNIQUE: Dynamically enhanced 3 mm thick images of the chest were obtained during administration o f approximately 150mL Isovue 370 IV contrast. Coronal and oblique MIP reconstruction images were gene rated and reviewed. Exam utilizes a protocol to evaluate the pulmonary arterial tree. All CT scans are performed using dose optimization technique as appropriate and may include automated exposure control or mA/KV adjustment according to patient size. FINDINGS: No pulmonary emboli are identified. The aorta as imaged shows no acute or suspicious finding. No pericardial thickening or effusion. No suspicious mass or infiltrate. Small lung mass seen left posterior gutter April 2015 is no longe r present. There is scarring or postsurgical change at this site. No acute lung parenchymal process s een. No pleural effusion or pleural thickening. Patient does have a 5 mm noncalcified nodule anterior right middle lobe unchanged back to 2014. No mediastinal or hilar suspicious masses. No chest wall masses or abnormal axillary lymphadenopathy. IMPRESSION: No pulmonary emboli identified. No other significant or suspicious findings.
[2020-03-13 11:45] VITALS: O2SAT 99
--- NOTE | 2020-03-13 12:07 | RAD REPORT ---
EXAM DESCRIPTION: NM - Rest Stress Cardiac Imaging - 03/13/2020 11:48 am CLINICAL HISTORY: Chest pain COMPARISON: None. TECHNIQUE: The patient was administered 10.77 mCi of Tc 99m Sestamibi prior to resting SPECT imaging of the heart. The patient was then administered 30.7 mCi of Tc 99m Sestamibi following exercise or p harmacologic stress. Multiplanar SPECT images were reviewed. FINDINGS: The end diastolic volume is 46 ml, the end systolic volume is 11 ml, and the ejection frac tion is 77 %. Small focus of diminished activity is seen at the anterior septal apex. This does not change between rest and stress imaging. Decreased activity along the inferior wall does not show a suspicious change between rest and stress imaging. No stress-induced ischemic changes confirmed. IMPRESSION: No stress-induced ischemic change confirmed. Anterior septal apex and inferior wall diminished activity probably the affects of breast attenuation and diaphragm attenuation, respectively. Ventricular volumes and ejection fractions are normal range.
--- NOTE | 2020-03-13 12:36 | PN ---
The patient admitted and seen by Dr. Boyd for chest pain, hypertension, and dyslipidemia. She is p ositive for COVID and had a pacemaker. She has an echocardiogram that is pending, but I think it michael l be done tomorrow. Lexiscan is pending tomorrow and today. D-dimer was unremarkable. We are await ing her stress test results, but troponin remains negative. Telemetry remains negative. We will see what her stress test shows before making further decisions. The case will be discussed with Dr. Lou mendoza. IRVING/DEJUAN Voice ID: [id number] Report ID: [id number]
--- NOTE | 2020-03-13 14:50 | P.DS ---
Admission Date: 03/11/20 Discharge Date: 03/13/20 Primary Care Provider: Dr. Millan Disposition: ROUTINE DISCHARGE Discharge Condition: FAIR Reason for Admission: Chest pain Consultations: Cardiology-Dr. Boyd Brief History of Present Illness: 75 Year-old woman with of DM type 2, pacemaker present to the emergency department with a complaint of chest and some shortness of breath. Her initial troponin was negative. EKG on presentation showed paced rhythm. She tested positive for COVID 19. Patient was placed under observation for ACS rule out. Hospital Course: Troponin trended negative. Patient was evaluated by cardiology who recommended nuclear stress test and echocardiogram as well as D-dimer. Her D-dimer was elevated. CTA thorax was performed which was negative for pulmonary embolism. Nuclear stress test was done which did not show any stress-induced. Patient was placed on multivitamins supplementation for the COVID infection. Echocardiogram is performed and the result is pending. Patient has no symptoms today. She is deemed clinically stable for discharge per cardiology recommendation. Vital Signs/Physical Exam: Temp Pulse Resp BP Pulse Ox 97 F 63 13 108/45 L 100 03/13/20 08:00 03/13/20 13:00 03/13/20 13:00 03/13/20 13:00 03/13/20 12:00 General: Alert, In no apparent distress Neck: Supple, JVD not distended Respiratory: Clear to auscultation bilaterally, Normal air movement Cardiovascular: No edema, Regular rate/rhythm Gastrointestinal: Non-distended Musculoskeletal: No swelling, No erythema Integumentary: No rashes, No breakdown Neurological: Other (Nonfocal.) Laboratory Data at Discharge: WBC 4.9 K/uL (4.3-10.9) D 03/12/20 05:25 Hgb 11.7 g/dL (12.0-15.0) L 03/12/20 05:25 Hct 34.6 % (36.0-45.0) L 03/12/20 05:25 Plt Count 150 K/uL (152-406) L 03/12/20 05:25 PT 13.1 SECONDS (9.5-12.5) H 03/11/20 20:30 INR 1.11 03/11/20 20:30 Sodium 139 mmol/L (136-145) 03/13/20 04:44 Potassium 4.2 mmol/L (3.5-5.1) 03/13/20 04:44 BUN 15 mg/dL (7-18) 03/13/20 04:44 Creatinine 0.59 mg/dL (0.55-1.3) 03/13/20 04:44 Glucose 110 mg/dL (74-106) H 03/13/20 04:44 Magnesium 1.9 mg/dL (1.8-2.4) 03/13/20 04:44 Total Bilirubin 0.3 mg/dL (0.2-1.0) 03/11/20 20:30 AST 26 U/L (15-37) 03/11/20 20:30 ALT 23 U/L (12-78) 03/11/20 20:30 Alkaline Phosphatase 125 U/L (45-117) H 03/11/20 20:30 Troponin I < 0.02 ng/mL (0.0-0.045) 03/12/20 09:20 Triglycerides 63 mg/dL (<150) 03/12/20 05:25 Cholesterol 120 mg/dL (<200) 03/12/20 05:25 HDL Cholesterol 57 mg/dL (40-60) 03/12/20 05:25 Cholesterol/HDL Ratio 2.11 03/12/20 05:25 Lipase Cancelled 03/11/20 21:31 Home Medications: Metformin HCl [Glucophage] 1,000 mg PO BID 02/26/15 Levothyroxine [Synthroid*] 88 mcg PO [id number] 05/22/15 Losartan Potassium [Cozaar] 1 tab PO DAILY 03/12/20 Simvastatin 1 tab PO BEDTIME 03/12/20 Ascorbic Acid [Vitamin C*] 500 mg PO TID #90 tablet 03/13/20 Aspirin [Aspirin EC 81 MG] 81 mg PO DAILY #30 tablet. 03/13/20 Cholecalciferol (Vitamin D3) [Vitamin D 1000 Iu Tab*] 2,000 unit PO DAILY #30 tab 03/13/20 Zinc Sulfate [Zinc Sulfate*] 220 mg PO DAILY #30 cap 03/13/20 traMADol HCL [Ultram*] 50 mg PO TID PRN #15 tab 03/13/20 New Medications: Aspirin [Aspirin EC 81 MG] 81 mg PO DAILY #30 tablet. traMADol HCL [Ultram*] 50 mg PO TID PRN #15 tab PRN Reason: Pain Scale 5-7 (Moderate) Ascorbic Acid [Vitamin C*] 500 mg PO TID #90 tablet Cholecalciferol (Vitamin D3) [Vitamin D 1000 Iu Tab*] 2,000 unit PO DAILY #30 tab Zinc Sulfate [Zinc Sulfate*] 220 mg PO DAILY #30 cap Diet: ADA Activity: Fall precautions Followup: Pop Millan DO [Primary Care Provider] - 1-2 Weeks
[2020-03-13 15:18] VITALS: BP 96/44
--- NOTE | 2020-03-14 07:30 | ECHO ---
HEIGHT: 5 ft 0 in WEIGHT: 146 lb 4.8 oz DATE OF STUDY: 03/13/[address]: Leonard Kerr MD 2-DIMENSIONAL: YES M.MODE: YES DOPPLER: YES COLOR FLOW: YES TDS: PORTABLE: DEFINITY: BUBBLE STUDY: DIAGNOSIS: CHEST PAIN, EVALUATE FUNCTION CARDIAC HISTORY: CATHERIZATION: YES SURGERY: NO PROSTHETIC VALVE: NO PACEMAKER: YES MEASUREMENTS (cm) DIASTOLIC (NORMALS) SYSTOLIC (NORMALS) IVSd 1.0 (0.6-1.2) LA Diam 2.5 (1.9-4.0) LVEF 69% LVIDd 4.1 (3.5-5.7) LVIDs 2.5 (2.0-3.5) %FS 38% LVPWd 1.0 (0.6-1.2) Ao Diam 2.7 (2.0-3.7) 2 DIMENSIONAL ASSESSMENT: RIGHT ATRIUM: NORMAL LEFT ATRIUM: NORMAL RIGHT VENTRICLE: NORMAL LEFT VENTRICLE: NORMAL TRICUSPID VALVE: NORMAL MITRAL VALVE: NORMAL PULMONIC VALVE: NORMAL AORTIC VALVE: NORMAL PERICARDIAL EFFUSION: NONE AORTIC ROOT: NORMAL LEFT VENTRICULAR WALL MOTION: DOPPLER/COLOR FLOW: COMMENTS: NORMAL LEFT VENTRICULAR SIZE AND FUNCTION. NO WALL MOTION ABNORMALITY. NO EFFUSION. TECHNOLOGIST: DUONG VELAZQUEZ
--- NOTE | 2020-03-14 07:36 | TREADPHA ---
DX: CHEST PAIN Date of Study: 03/13/2020 Ht: 5' 0 " Wt: 146 lb 4.8 oz Consulting Physician: ARTIE MEDICATIONS: TYLENOL, VITAMIN C, ASPIRIN, LIPITOR, LOVENOX, NOVOLIN-R HISTORY: 75 YEAR OLD FEMALE, COMPLIANTS OF CHEST PAIN. HISTORY OF DIABETES, THYROID CANCER, PACEMAKER, HYPERLIPIDEMIA, FORMER SMOKER, NON-DRINKER. PHYSICIAL EXAMINATION: RESTING B.P.: 108/71 RESTING H.R.: 60 RESTING EKG: NORMAL PROTOCOL: PHARMACOLOGIC EXERCISE TIME: 3:30 B.P. AT PEAK STRESS: 110/56 IMPRESSION: LEXISCAN INJECTED, FOLLOWED BY CARDIOLITE PER PROTOCOL. SEE NUCLEAR MEDICINE REPORT. NO SUPRAVENTRICULAR TACHYCARDIA, NO VENTRICULAR TACHYCARDIA, NO PREMATURE ATRIAL COMPLEXES. FREQUENT PREMATURE VENTRICULAR COMPLEXES. PATIENT REPORTS NO CHEST PAIN. PATIENT HAS PACEMAKER.
== END 2020-03-13 15:45 | disposition home or self-care (01) ==
LOC: ER 20:02 → ERHOLD 22:36 → 3RD-ICU 03-12 07:47
PROVIDERS: ADMIT Hospitalist; ATTEND Internal Medicine
DX: U07.1 COVID-19 (principal); R07.9 Chest pain, unspecified; E11.9 Type 2 diabetes mellitus without complications; Z95.0 Presence of cardiac pacemaker; R79.1 Abnormal coagulation profile; Z79.84 Long term (current) use of oral hypoglycemic drugs; I10 Essential (primary) hypertension; E78.5 Hyperlipidemia, unspecified; R94.31 Abnormal electrocardiogram [ECG] [EKG]; E03.9 Hypothyroidism, unspecified; Z87.891 Personal history of nicotine dependence
CPT/HCPCS: 93005; 93017; 93306; 85025 ×2; 80048 ×3; 36415 ×2; 83735 ×3; 85610; 80061; 82947 ×7; 85379; 80076; 84443; 84484 ×3; 84439; 82728; 83690; 83880; 86140 ×3; 71275; 71045; 78452; 96375; 96374; 99285; U0003; Q9967; J1650 ×2; J3475; J2270; J2785; J2405; A9500

== ENCOUNTER 2021-09-20 08:59 | Emergency (ER) | payer MEDICARE, OTHER ==
--- OUTSIDE RECORDS SUMMARY | 2021-09-20 09:03 | XMS REPORT | Continuity of Care Document ---
:1945 Author Organization [facility] t Address [facility] [place] [address] Care Team Providers Name Role Phone Alejandra MILLAN Primary Care Physician Unavailable Alejandra Millan Attending Clinician Unavailable Kitty RN, T Attending Clinician Unavailable BORIS Attending Clinician Unavailable Boris DEVELOPER ADVOCATE Attending Clinician Aidan RAMOS Attending Clinician SANGITA Attending Clinician Unavailable Alejandra CHOI Attending Clinician Unavailable Sumi LANCASTER, S Attending Clinician Doctor Unassigned, Name Attending Clinician Unavailable Ajibade_O_AH Attending Clinician Unavailable Jeffy Daniel Attending Clinician Ismael CLINTON Attending Clinician Po, [facility] Attending Clinician Unavailable Ige-Odunuga_J_AH Attending Clinician Unavailable Ajibade_O_AH Admitting Clinician Unavailable Ige-Odunuga_J_AH Admitting Clinician Unavailable Payers Payer Name Policy Type Policy Number Effective Date Expiration Date S carlo [employer] [place] [id number] 2019 CLASSIC/VALUE 00:00:00 [facility] [id number] 2021 (MEDICARE 00:00:00 REPLACEMENT HMO) [place] [place] - [id number] 2019 [place] (MEDICARE 00:00:00 REPLACEMENT/ADVANTA GE - HMO) Problems Condition Condition Condition Status Onset Resolution Last Treating Co mments Source Name Details Category Date Date Treatment Clinician Date No known No known Disease Unive rs active active ity of problems problems [facility] Allergies, Adverse Reactions, Alerts Allergy Allergy Status Severity Reaction(s) Onset Inactive Treating Comm ents Source Name Type Date Date Clinician NO KNOWN Drug Active Univers ALLERGIE Class ity of S [facility] Lisinopr Adverse Active Info Not Commo n il Reaction Available [facility] Social History Social Habit Start Date Stop Date Quantity Comments Source Exposure to Not sure [facility] SARS-CoV-2 (event) [facility] Tobacco use and 2019-10-27 2019-10-27 Never used [facility] exposure 00:00:00 00:00:00 [facility] Sex Ass[birth year] At [birth year] [facility] 00:00:00 00:00:00 [facility] Smoking Status Start Date Stop Date Source Former smoker 2019-10-27 00:00:00 2019-10-27 00:00:00 [facility] Medications Ordered Filled Start Stop Current Ordering Indication Dosage Frequency Signature Comments Components Source Medication Medication Date Date Medication? Clinician (SIG) Name Name naproxen 2020- No 500mg 500 mg, Univ ers (NAPROSYN) 07-23 03-29 Oral, ity of tablet 500 03:26: 03:29 ONCE, 1 [place] as mg 00 :00 dose, [facility] 07/22/20 at Branch 2230, Routine naproxen Yes [id number] 500mg Take 1 Un sirena (NAPROSYN) 3-28 tablet by ity of 500 mg 00:00: mouth 2 [place] tablet 00 (two) [facility] daily with meals. naproxen Yes [id number] 500mg Take 1 Un sirena (NAPROSYN) 3-28 tablet by ity of 500 mg 00:00: mouth 2 [place] tablet 00 (two) Medical times [place] daily with meals. naproxen Yes [id number] 500mg Take 1 Un sirena (NAPROSYN) 3-28 tablet by ity of 500 mg 00:00: mouth 2 [place] tablet 00 (two) Medical times Branch daily with meals. naproxen 2020- No [id number] 500mg Take 1 U nivers (NAPROSYN) 3-28 03-28 tablet by ity of 500 mg 00:00: 00:00 mouth 2 [place] tablet 00 :00 (two) Medical times Branch daily with meals. benzonatate 2019- 2020- No [id number] 100mg Take 1 Univers (TESSALON 7- 07-17 capsule by ity of HERNANDEZ) 100 00:00: 04:59 mouth 3 [place] capsule 00 :00 (three) Medica l times Branch daily for 14 days. benzonatate 2019- 2020- No [id number] 100mg Take 1 Univers (TESSALON 7-06 03-17 capsule by itlalo of HERNANDEZ) 100 00:00: 04:59 mouth 3 [place] capsule 00 :00 (three) Medica l times Branch daily for 14 days. benzonatate 2019- 2020- No [id number] 100mg Take 1 Univers (TESSALON 7-06 03-17 capsule by itlalo of HERNANDEZ) 100 00:00: 04:59 mouth 3 [place] mg capsule 00 :00 (three) Medica l times Branch daily for 14 days. benzonatate 2019- 2020- No [id number] 100mg Take 1 Univers (TESSALON 7- 07-17 capsule by itlalo of HERNANDEZ) 100 00:00: 04:59 mouth 3 [place] capsule 00 :00 (three) Medica l times Branch daily for 14 days. maalox:diph 2019-2019- No [id number] 10mL Take 10 mL Univers enhydrAMINE 10-26 07-08 by mouth ity of :lidocaine 00:00: 04:59 as needed [place] 2 % viscous 00 :00 (swish and Me dical 1:1:1 spit, Branch 1:1:1) for up to 5 days. maalox:diph 2019-2019- No [id number] 10mL Take 10 mL Univers enhydrAMINE 7-02 07-08 by mouth ity of :lidocaine 00:00: 04:59 as needed [place] 2 % viscous 00 :00 (swish and Me dical 1:1:1 spit, Branch 1:1:1) for up to 5 days. maalox:diph 2020-0 2020- No [id number] 10mL Take 10 mL Univers enhydrAMINE 10-26 by mouth ity of :lidocaine 00:00: 04:59 as needed [place] 2 % viscous 00 :00 (swish and Me dical 1:1:1 spit, Branch 1:1:1) for up to 5 days. simvastatin 2020-0 Yes Univer s 5 mg tablet 10-25 ity of 00:00: [facility] losartan 25 2020-0 Yes Univer s mg tablet 10-25 ity of 00:00: [facility] simvastatin 2020-0 Yes Univer s 5 mg tablet 10-25 ity of 00:00: [facility] losartan 25 2020-0 Yes Univer s mg tablet 10-25 ity of 00:00: [facility] simvastatin 2020-0 Yes Univer s 5 mg tablet 10-25 ity of 00:00: [facility] losartan 25 2020-0 Yes Univer s mg tablet 10-25 ity of 00:00: [facility] simvastatin 2020-0 Yes Univer s 5 mg tablet 10-25 ity of 00:00: [facility] losartan 25 2020-0 Yes Univer s mg tablet 10-25 ity of 00:00: [facility] simvastatin 2020-0 Yes Univer s 5 mg tablet 10-25 ity of 00:00: [facility] losartan 25 2020-0 Yes Univer s mg tablet 10-25 ity of 00:00: [facility] simvastatin 2020-0 Yes Univer s 5 mg tablet 10-25 ity of 00:00: [facility] losartan 25 2020-0 Yes Univer s mg tablet 10-25 ity of 00:00: [facility] simvastatin 2020-0 Yes Univer s 5 mg tablet 10-25 ity of 00:00: [facility] losartan 25 2020-0 Yes Univer s mg tablet 10-25 ity of 00:00: [facility] simvastatin 2020-0 Yes Univer s 5 mg tablet 10-25 ity of 00:00: [place] [facility] losartan 25 2019-0 Yes Univer s mg tablet 10-25 ity of 00:00: [facility] levothyroxi 0 Yes 88ug Take 88 Uni vers ne 88 mcg 8-22 mcg by ity of tablet 00:00: mouth. [facility] levothyroxi Yes 88ug Take 88 Uni vers ne 88 mcg 8-22 mcg by ity of tablet 00:00: mouth. [facility] levothyroxi Yes 88ug Take 88 Uni vers ne 88 mcg 8-22 mcg by ity of tablet 00:00: mouth. [place] [facility] levothyroxi Yes 88ug Take 88 Uni vers ne 88 mcg 8-22 mcg by ity of tablet 00:00: mouth. [place] [facility] levothyroxi Yes 88ug Take 88 Uni vers ne 88 mcg 8-22 mcg by ity of tablet 00:00: mouth. [facility] levothyroxi Yes 88ug Take 88 Uni vers ne 88 mcg 8-22 mcg by ity of tablet 00:00: mouth. [facility] levothyroxi Yes 88ug Take 88 Uni vers ne 88 mcg 8-22 mcg by ity of tablet 00:00: mouth. [place] [facility] levothyroxi Yes 88ug Take 88 Uni vers ne 88 mcg 8-22 mcg by ity of tablet 00:00: mouth. [place] [facility] metFORMIN 0 Yes 1{tbl} Take 1 Univ ers 1,000 mg 9-20 tablet by ity of tablet 00:00: mouth. [place] [facility] metFORMIN Yes 1{tbl} Take 1 Univ ers 1,000 mg 9-20 tablet by ity of tablet 00:00: mouth. [place] [facility] metFORMIN Yes 1{tbl} Take 1 Univ ers 1,000 mg 9-20 tablet by ity of tablet 00:00: mouth. [place] [facility] metFORMIN Yes 1{tbl} Take 1 Univ ers 1,000 mg 9-20 tablet by ity of tablet 00:00: mouth. [place] [facility] metFORMIN Yes 1{tbl} Take 1 Univ ers 1,000 mg 9-20 tablet by ity of tablet 00:00: mouth. [address] Branch metFORMIN 2015-0 Yes 1{tbl} Take 1 Univ ers 1,000 mg 9-20 tablet by ity of tablet 00:00: mouth. [place] [facility] Branch metFORMIN 2016-0 Yes 1{tbl} Take 1 Univ ers 1,000 mg 9-20 tablet by ity of tablet 00:00: mouth. [place] [facility] Branch metFORMIN 2015-0 Yes 1{tbl} Take 1 Univ ers 1,000 mg 9-20 tablet by ity of tablet 00:00: mouth. [address] Branch phenazopyri 2014- Yes 200mg Take 1 Tab Univers dine 0-06 by mouth 3 ity of (PYRIDIUM) 00:00: (three[place] 200 [place] 00 times Medical tablet daily. Branch levofloxaci 2014- Yes 500mg Take 1 Tab Univers n 0-06 by mouth ity of (LEVAQUIN) 00:00: every 24 [place] as 500 mg 00 (twenty-fo Medical tablet ur) hours. Branch phenazopyri 2014- Yes 200mg Take 1 Tab Univers dine 0-06 by mouth 3 ity of (PYRIDIUM) 00:00: (three[place] 200 mg 00 times Medical tablet daily. Branch levofloxaci 2014- Yes 500mg Take 1 Tab Univers n 0-06 by mouth ity of (LEVAQUIN) 00:00: every 24 [place] as 500 mg 00 (twenty-fo Medical tablet ur) hours. Branch phenazopyri 2014- Yes 200mg Take 1 Tab Univers dine 0-06 by mouth 3 ity of (PYRIDIUM) 00:00: (three[place] 200 mg 00 times Medical tablet daily. Branch levofloxaci 2014- Yes 500mg Take 1 Tab Univers n 0-06 by mouth ity of (LEVAQUIN) 00:00: every 24 [place] as 500 mg 00 (twenty-fo Medical tablet ur) hours. Branch phenazopyri 2014- Yes 200mg Take 1 Tab Univers dine 0-06 by mouth 3 ity of (PYRIDIUM) 00:00: (three[place] 200 mg 00 times Medical tablet daily. Branch levofloxaci 2014- Yes 500mg Take 1 Tab Univers n 0-06 by mouth ity of (LEVAQUIN) 00:00: every 24 [place] as 500 mg 00 (twenty-fo Medical tablet ur) hours. Branch phenazopyri 2014-04 Yes 200mg Take 1 Tab Univers dine 0-06 by mouth 3 ity of (PYRIDIUM) 00:00: (three[place] 200 mg 00 times Medical tablet daily. Branch levofloxaci 2014-04 Yes 500mg Take 1 Tab Univers n 0-06 by mouth ity of (LEVAQUIN) 00:00: every 24 [place] as 500 mg 00 (twenty-fo Medical tablet ur) hours. Branch phenazopyri 2014-04 Yes 200mg Take 1 Tab Univers dine 0-06 by mouth 3 ity of (PYRIDIUM) 00:00: (three[place] 200 mg 00 times Medical tablet daily. Branch levofloxaci 2014-04 Yes 500mg Take 1 Tab Univers n 0-06 by mouth ity of (LEVAQUIN) 00:00: every 24 [place] as 500 mg 00 (twenty-fo Medical tablet ur) hours. Branch phenazopyri 2014-04 Yes 200mg Take 1 Tab Univers dine 0-06 by mouth 3 ity of (PYRIDIUM) 00:00: (three[place] 200 mg 00 times Medical tablet daily. Branch levofloxaci 2014-04 Yes 500mg Take 1 Tab Univers n 0-06 by mouth ity of (LEVAQUIN) 00:00: every 24 [place] as 500 mg 00 (twenty-fo Medical tablet ur) hours. Branch phenazopyri 2014-04 Yes 200mg Take 1 Tab Univers dine 0-06 by mouth 3 ity of (PYRIDIUM) 00:00: (three[place] 200 mg 00 times Medical tablet daily. Branch levofloxaci 2014-04 Yes 500mg Take 1 Tab Univers n 0-06 by mouth ity of (LEVAQUIN) 00:00: every 24 [place] as 500 mg 00 (twenty-fo Medical tablet ur) hours. Branch Metformin Metformin Yes Pop 1 tablet Common HCl HCl Millan with meals [facility] Flonase Flonase Yes Pop 1 spray in C ommon Millan each Spirit nostril [facility] Ventolin Ventolin Yes Pop 2 puffs as Common HFA HFA Millan needed [facility] Ferrous Ferrous Yes Pop not Common Sulfate Sulfate Millan defined [facility] Ibuprofen Ibuprofen Yes Pop 1 tablet Common Millan with food Spirit or milk as - [facility] needed [facility] Simvastatin Simvastatin Yes Pop 1 tablet Common Millan in the Spirit evening - [facility] Vitamin D Vitamin D Yes Pop 1 tablet Common Millan [facility] - [facility] Cozaar Cozaar Yes Pop 1 tablet Commo n Millan [facility] - [facility] Fluticasone Fluticasone Yes Pop USE TWO Common Propionate Propionate Millan SPRAY(S) Spirit IN EACH - [facility] NOSTRIL ONCE DAILY [facility] Levothyroxi Levothyroxi Yes Pop 1 tablet Common ne Sodium ne Sodium Millan on an Spi rit empty - [facility] stomach in [facility] Immunizations Ordered Filled Immunization Date Status Comments [facility] e Immunization Name Name SARS-COV-2 COVID-19 2020-08-02 Completed Unive rsity of PFIZER VACCINE 00:00:00 [facility] SARS-COV-2 COVID-19 2020-08-02 Completed Unive rsity of PFIZER VACCINE 00:00:00 [facility] SARS-COV-2 COVID-19 2020-06-18 Completed Unive rsity of PFIZER VACCINE 00:00:00 [facility] SARS-COV-2 COVID-19 2020-06-18 Completed Unive rsity of PFIZER VACCINE 00:00:00 [facility] SARS-COV-2 COVID-19 2020-06-18 Completed Unive rsity of PFIZER VACCINE 00:00:00 [facility] SARS-COV-2 COVID-19 2020-06-18 Completed Unive rsity of PFIZER VACCINE 00:00:00 [facility] Vital Signs Vital Name Observation Time Observation Value Comments Source Systolic blood 2021-04-25 15:14:00 110 mm[Hg] Univer sity of pressure [facility] Diastolic blood 2021-04-25 15:14:00 73 mm[Hg] Unive rsity of pressure [facility] Heart rate 2021-04-25 15:14:00 74 /min [facility] Body temperature 2021-04-25 15:14:00 37 [place] [facility] Respiratory rate 2021-04-25 15:14:00 16 /min [facility] Body height 2021-04-25 15:14:00 154.9 cm [facility]i ty [facility] Body weight 2021-04-25 15:14:00 67.388 kg [facility] BMI 2021-04-25 15:14:00 28.07 kg/m2 [facility] Oxygen saturation in 2021-04-25 15:14:00 97 /min University of Arterial blood by [facility] Pulse oximetry Branch Systolic blood 2020-07-23 03:00:00 162 mm[Hg] Univer sity of pressure [facility] Diastolic blood 2020-07-23 03:00:00 71 mm[Hg] Unive rsity of pressure [facility] Heart rate 2020-07-23 03:00:00 72 /min Universi ty [facility] Respiratory rate 2020-07-23 03:00:00 14 /min Univ ersity of [facility] Oxygen saturation in 2020-07-23 03:00:00 96 /min University of Arterial blood by [facility] Pulse oximetry Branch Body temperature 2020-07-23 02:47:00 36.78 Carlota Univ ersity [facility] Body height 2020-07-23 02:47:00 157.5 cm [facility]i [facility] Body weight 2020-07-23 02:47:00 77.111 kg [facility] BMI 2020-07-23 02:47:00 31.09 kg/m2 [facility]i [facility] Systolic blood 2019-10-27 13:11:00 127 mm[Hg] Univer sity of pressure [facility] Diastolic blood 2019-10-27 13:11:00 82 mm[Hg] Unive rsity of pressure [facility] Heart rate 2019-10-27 13:11:00 84 /min [facility]i [facility] Body temperature 2019-10-27 13:11:00 37.17 Carlota Univ ersity [facility] Respiratory rate 2019-10-27 13:11:00 17 /min Univ ersity [facility] Body height 2019-10-27 13:11:00 157.5 cm [facility]i [facility] Body weight 2019-10-27 13:11:00 66.225 kg [facility]i ty [facility] BMI 2019-10-27 13:11:00 26.70 kg/m2 Universi ty [facility] Oxygen saturation in 2019-10-27 13:11:00 98 /min University of Arterial blood by [facility] Pulse oximetry Branch Systolic blood 2019-10-27 13:11:00 127 mm[Hg] Univer sity of pressure [facility] Diastolic blood 2019-10-27 13:11:00 82 mm[Hg] Unive rsity of pressure [facility] Heart rate 2019-10-27 13:11:00 84 /min Universi ty [facility] Body temperature 2019-10-27 13:11:00 37.17 [facility] [facility] Respiratory rate 2019-10-27 13:11:00 17 /min [facility] Body height 2019-10-27 13:11:00 157.5 cm Universi ty [facility] Body weight 2019-10-27 13:11:00 66.225 kg Universi [facility] BMI 2019-10-27 13:11:00 26.70 kg/m2 Universi [facility] Oxygen saturation in 2019-10-27 13:11:00 98 /min University of Arterial blood by [facility] Pulse oximetry Branch Procedures Procedure Date / Time Performed Performing Clinician Sourc e POCT MOLECULAR FLU 2021-04-25 15:25:00 Serenity Barry [facility] NOTICE OF PRIVACY 2020-07-23 02:17:13 Doctor Unassigned, No Univ [facility] PRACTICES Name [facility] CONSENT/REFUSAL FOR 2020-07-23 02:15:46 Doctor [facility]igned, No [facility] AND Name Medical Branch TREATMENT Encounters Start End Encounter Admission Attending Care Care Encounter Source Date/Time Date/Time Type Type Clinicians Facility Department ID 2021-07-09 [facility] [id number] Common 15:59:00 Pop [facility] 2021-06-25 Outpatient Millan, STLMLC STLC [id number] Common 09:45:02 Pop [facility] 2021-05-22 Outpatient Millan[facility] [id number] Common 13:40:22 Pop [facility] 2021-05-22 Outpatient Millan, STLMLC STLMLC [id number] Common 12:54:16 Pop [id number] [facility] 2021-05-22 Outpatient Millan, STLMLC STLMLC [id number] Common 12:29:43 Pop [id number] [facility] 2021-05-22 Outpatient Millan, STLMLC STLMLC [id number] Common 12:29:36 Pop [id number] [facility] 2021-05-22 Outpatient Millan, STLMLC STLMLC [id number] Common 12:26:13 Pop [id number] [facility] 2021-05-22 Outpatient Millan, STLMLC STLMLC [id number] Common 12:25:21 Pop [id number] [facility] 2021-05-22 Outpatient Millan, STLMLC STLMLC Common 12:23:41 Pop [id number] [facility] 2021-05-22 Outpatient Millan, STLMLC STLMLC Common 11:59:56 Pop [id number] [facility] 2021-05-22 Outpatient Millan, STLMLC STLMLC [id number] Common 11:26:37 Pop [id number] [facility] 2021-05-22 Outpatient Millan, STLMLC STLMLC Common 11:01:04 Pop [id number] [facility] 2021-02-24 Emergency [facility] [id number] Univers 09:03:23 ity of [facility] 2021-07-09 2021-07-09 ambulatory STLMLC STLMLC [id number] Common 00:00:00 00:00:00 [facility] 2021-06-25 2021-06-25 ambulatory STLMLC STLMLC [id number] Common 00:00:00 00:00:00 [facility] 2021-05-01 2021-05-01 ambulatory STLMLC STLMLC [id number] Common 00:00:00 00:00:00 [facility] 2021-04-26 2021-04-26 Letter JEAN-CLAUDE Tang [id number] Univers 00:00:00 00:00:00 (Out) Marybeth DAVID [id number] it [facility] [id number] [place] as [phone] [address] 2021-04-25 2021-04-25 [facility] [id number] Univers 09:20:00 10:08:45 [facility] 2021-04-25 2021-04-25 Urgent Boris Serenity [facility] [id number] Univers 09:20:00 09:40:00 Rema [facility] [id number] ity [facility] [id number] [place] as OFE?BLEA [phone] [address] MEDICAL OFFICE BUILDING 2021-04-25 2021-04-25 Outpatient R [facility] [id number] Univers 09:20:00 09:20:00 [id number] ity [facility] 2021-03-25 2021-03-25 ambulatory STLMLC STLMLC [id number] Common 00:00:00 00:00:00 [facility] 2021-03-06 2021-03-06 ambulatory STLMLC STLMLC [id number] Common 00:00:00 00:00:00 [facility] 2021-02-22 2021-02-22 Outpatient DMG DMG [id number] [facility] 08:01:00 08:01:00 1029 Medica l Group 2021-01-02 2021-01-02 [facility] [id number] [address] [place] 00:00:00 00:00:00 [facility] 2020-12-25 2020-12-25 Outpatient STLMLC STLMLC [id number] Common 00:00:00 00:00:00 [facility] 2020-12-18 2020-12-18 Outpatient STLMLC STLMLC [id number] Common 00:00:00 00:00:00 [facility] 2020-12-13 2020-12-13 Outpatient STLMLC STLMLC [id number] Common 00:00:00 00:00:00 [facility] 2020-12-13 2020-12-13 Outpatient STLMLC STLMLC [id number] Common 00:00:00 00:00:00 [facility] 2020-12-05 2020-12-05 Outpatient STLMLC STLMLC [id number] Common 00:00:00 00:00:00 [facility] 2020-11-30 2020-11-30 Outpatient STLMLC STLMLC [id number] Common 00:00:00 00:00:00 [facility] 2020-11-30 2020-11-30 Outpatient STLMLC STLMLC [id number] Common 00:00:00 00:00:00 [facility] 2020-08-23 2020-08-23 Outpatient STLMLC STLMLC [id number] Common 00:00:00 00:00:00 [facility] 2020-08-02 2020-08-02 Outpatient Parris CHOI, [facility] [id number] Univers 07:50:00 07:50:00 [facility] 2020-07-22 2020-07-22 [facility] [id number] Univers 21:31:00 22:45:00 Prema Multani [id number] i ty of [place] [id number] [facility] [phone] [facility] 084 Branch 2020-07-22 2020-07-22 Orders Doctor JEAN-CLAUDE [id number] Univers 00:00:00 00:00:00 Only Unassigned, FRANKIE [id number] ity [facility] [id number] [facility] [phone] [facility] 009 Branch 2020-06-18 2020-06-18 Outpatient [facility] [id number] Univers 08:00:00 08:00:00 [id number] ity [facility] 2020-06-18 2020-06-18 Outpatient Parris CHOI [facility] [id number] Univers 08:00:00 08:00:00 INA vieyra [facility] 2020-06-06 2020-06-06 Outpatient STLMLC STLMLC [id number] Common 00:00:00 00:00:00 [facility] 2020-05-24 2020-05-24 Outpatient STLMLC STLMLC [id number] Common 00:00:00 00:00:00 [facility] 2020-02-22 2020-02-22 Outpatient STLMLC STLMLC [id number] Common 00:00:00 00:00:00 [facility] 2020-02-14 2020-02-14 Outpatient STLMLC STLMLC [id number] Common 00:00:00 00:00:00 [facility] 2020-01-05 2020-01-05 Outpatient [facility] [id number] Common 09:48:00 09:48:00 [employer] [facility] it [employer] [facility] 2019-12-22 2019-12-22 Outpatient Ajibade_O_A VFP VFP [id number] [facility] 04:39:00 04:39:00 H [id number] Family Practic e 2019-12-22 2019-12-22 Outpatient Ajibade_O_A VFP VFP [id number] [facility] 04:39:00 04:39:00 H [id number] Family Practic e 2019-12-22 2019-12-22 Outpatient Ajibade_O_A VFP VFP [id number] [facility] 04:39:00 04:39:00 H [id number] Family Practic e 2019-12-15 2019-12-15 Outpatient SANGITA [facility] [id number] [place] 00:00:00 00:00:00 PEDRO [address] 2019-12-09 2019-12-09 Outpatient SANGITA [facility] [id number] [place] 00:00:00 00:00:00 PEDRO [id number] [facility] 2019-11-24 2019-11-24 Outpatient [facility] [id number] Common 14:30:00 14:30:00 [employer] [facility] it Drive [facility] 2019-10-31 2019-10-31 Outpatient [facility] [id number] Common 09:25:00 09:25:00 jony [employer] [facility] it Drive [facility] 2019-10-31 2019-10-31 Telephone Elias, [facility] [id number] 00:00:00 00:00:00 [facility] [id number] [place] [id number] Professio [phone] [place] [address] [address] 2019-10-31 2019-10-31 Telephone Elias, [facility] [id number] [facility] 00:00:00 00:00:00 Swapna [facility] [id number] i ty of [place] [id number] Yordan as Professio [phone] [address] 2019-10-28 2019-10-28 Telephone Aneal, [facility] [id number] 00:00:00 00:00:00 [facility] [id number] [place] [id number] Professio [id number] [place] [address] [address] 2019-10-28 2019-10-28 Telephone [place], [facility] [id number] [facility] 00:00:00 00:00:00 [facility] [id number] it [place] [id number] Yordan as Professio [phone] [address] Office [address] [facility] 2019-10-27 2019-10-27 Urgent Pob1, Acute [facility] [id number] 08:03:16 08:45:16 [facility] [id number] [place] [id number] Professio [phone] [place] [address] [address] 2019-10-27 2019-10-27 Urgent Pob1, Acute Care Clinic [facility] [id number]. [id number] [facility] 08:03:16 08:45:16 Care Anene, [facility] [id number] ity [facility] [id number] Yordan as Radha [phone] [address] Office [address] [facility] 2019-10-27 2019-10-27 Outpatient R [facility] [id number] Univers 08:20:00 08:20:00 ity of [facility] 2019-10-20 2019-10-20 [facility] [id number] Common 08:36:00 08:36:[address] [facility] 2019-08-29 2019-08-29 [facility] [id number] Common 14:32:00 14:32:[address] [facility] 2019-08-29 2019-08-29 [facility] [id number] Common 11:08:00 11:08:[address] [facility] 2019-08-11 2019-08-11 [facility] [id number] Common 08:00:00 08:00:[address] [facility] 2019-06-15 2019-06-15 [facility]patient [place] [facility] [id number] [facility] 07:15:00 07:15:00 _[id number] Family Practic e 2019-05-12 2019-05-12 [facility] [id number] Common 11:00:00 11:00:[address] [facility] 2019-05-02 2019-05-02 [facility] [id number] Common 10:46:00 10:46:[address] [facility] 2019-04-29 2019-04-29 [facility] [id number] Common 15:18:00 15:18:[address] [facility] 2019-03-14 2019-03-14 [facility] [id number] Common 09:15:00 09:15:[address] [facility] 2019-03-07 2019-03-07 [facility] [id number] Common 10:00:00 10:00:[address] [facility] 2019-03-03 2019-03-03 [facility] [id number] Common 08:46:00 08:46:[address] [facility] 2019-02-03 2019-02-03 [facility] [id number] Common 14:45:00 14:45:[address] [facility] 2018-12-20 2018-12-20 [facility] [id number] Common 15:15:00 15:15:[address] [facility] 2018-11-04 2018-11-04 [facility] [id number] Common 13:15:00 13:15:[address] [facility] 2018-07-29 2018-07-29 [facility] [id number] Common 09:30:00 09:30:[address] [facility] 2018-07-02 2018-07-02 [facility] [id number] Common 11:15:00 11:15:[address] [facility] 2018-05-27 2018-05-27 [facility] [id number] Common 13:45:00 13:45:[address] [facility] 2018-04-30 2018-04-30 [facility] [id number] Common 08:30:00 08:30:[address] [facility] 2018-04-29 2018-04-29 [facility] [id number] Common 11:08:00 11:08:[address] [facility] 2018-01-26 2018-01-26 [facility] [id number] Common 10:30:00 10:30:[address] [facility] 2017-10-29 2017-10-29 [facility] [id number] Common 09:44:00 09:44:[address] [facility] 2017-10-12 2017-10-12 [facility] [id number] Common 14:19:00 14:19:[address] [facility] 2005-08-04 2005-08-04 Outpatient [facility] [id number] Univers 00:00:00 00:00:00 [id number] [facility] 2005-05-02 2005-05-02 Outpatient [facility] [id number] Univers 00:00:00 13:31:00 3 [facility] Results Test Description Test Time Test Comments Results Result Comments Source POCT MOLECULAR FLU 2021-04-25 15:37:36 Test Item Value Reference Range Interpretation Comme nts POCT Molecular FluA (test code = 81031-4) Negative Negative POCT Molecular FluB (test code = 81548-8) Negative Negative Lab Interpretation (test code = 66706-8) Normal [facility]
--- NOTE | 2021-09-20 11:20 | RAD REPORT ---
EXAM DESCRIPTION: Kathy Single View09/20/2021 10:25 am CLINICAL HISTORY: Cough COMPARISON: 2019 FINDINGS: The lungs appear clear of acute infiltrate. The heart is normal size. Pacemaker leads in place IMPRESSION: No acute abnormalities displayed
--- NOTE | 2021-09-20 11:38 | ER ---
Nurse's Notes [facility] Name: Nicolasa Dooley Age: 76 yrs Sex: Female : 1945 Arrival Date: 09/20/2021 Time: 09:03 Bed Waiting Private MD: Pop Millan Diagnosis: Acute pharyngitis, unspecified Presentation: 09/20 09:25 Chief complaint: Patient states: patients symptoms began approx one week ago of cough, iw congestion, and sore throat. left ear and throat pain is reported as well. Coronavirus screen: Client presents with at least one sign or symptom that may indicate coronavirus-19. Ebola Screen: No symptoms or risks identified at this time. Initial Sepsis Screen: Does the patient meet any 2 criteria? No. Patient's initial sepsis screen is negative. Does the patient have a suspected source of infection? No. Patient's initial sepsis screen is negative. Risk Assessment: Do you want to hurt yourself or someone else? Patient reports no desire to harm self or others. Onset of symptoms was September 14, 2021. 09:25 Method Of Arrival: Ambulatory iw 09:25 Acuity: SOCO 4 iw Triage Assessment: :29 General: Appears in no apparent distress. comfortable, Behavior is calm, cooperative, iw appropriate for age. Pain: Complains of pain in left ear Pain radiates to face. EENT: Reports nasal congestion nasal discharge pain when swallowing. Neuro: Level of Consciousness is awake, alert, obeys commands, Oriented to person, place, time, situation, Gait is steady, Speech is normal. Cardiovascular: Patient's skin is warm and dry. Respiratory: Airway is patent Respiratory effort is even, unlabored. Historical: - Allergies: : No Known Allergies; iw - PMHx: : Diabetes - NIDDM; Hypertension; Thyroid problem; iw - Immunization history:: Client reports receiving the 2nd dose of the Covid vaccine. - Social history:: Smoking status: Patient denies any tobacco usage or history of. Screenin:30 Abuse screen: Denies threats or abuse. Nutritional screening: No deficits noted. ap3 Tuberculosis screening: No symptoms or risk factors identified. Fall Risk None identified. Vital Signs: : BP 132 / 79; Pulse 78; Temp 97.8; Pulse Ox 100% ; Weight 68.04 kg; Height 5 ft. 1 in. iw (154.94 cm); 09:25 Body Mass Index 28.34 (68.04 kg, 154.94 cm) ED Course: 09:03 Patient arrived in ED. am2 09:05 Pop Millan DO is Private Physician. am2 09:09 Jorje Faulkner PA is PHCP. [facility] 09:09 Steve Kerr MD is Attending Physician. m 09:28 Triage completed. iw 09:30 Arm band placed on left wrist. ap3 09:30 Patient has correct armband on for positive identification. Pulse ox on. NIBP on. ap3 09:37 Strep Sent. mb7 09:37 SARS-COV-2 RT PCR (Document "Date of Onset" if Symptomatic) Sent. mb7 09:37 Influenza Screen (a \\T\\ B) Sent. mb7 10:27 Chest Single View XRAY In Process Unspecified. EDMS 10:48 Yvrose Laura, RN is Primary Nurse. iw 11:38 Pop Millan DO is Referral Physician. tanya Administered Medications: No medications were administered Medication: 09:30 VIS not applicable for this client. ap3 Outcome: 11:38 Discharge ordered by . m 11:56 Patient left the ED. Signatures: Dispatcher [employer] EDMS Jorje Faulkner PA PA jmm Williams, Irene, RN RN iw Katarzyna Felton amKatarzyna Dubon RN RN ap3 Shelbie Presley mb7
--- NOTE | 2021-09-20 11:39 | EDPHYS ---
Physician Documentation [facility] Name: Nicolasa Dooley Age: 76 yrs Sex: Female : 1945 Arrival Date: 09/20/2021 Time: 09:03 Bed Waiting Private MD: Pop Mlilan ED Physician Steve Kerr HPI: 09/20 11:36 This 76 yrs old Female presents to ER via Ambulatory with complaints of Nasal jmm Congestion, Sore Throat. 11:36 The patient or guardian reports cough. Onset: The symptoms/episode began/occurred jmm gradually, 1 week(s) ago. Modifying factors: The symptoms are alleviated by nothing, the symptoms are aggravated by nothing. Associated signs and symptoms: Pertinent positives: earache, sore throat. The patient has experienced similar episodes in the past. Historical: - Allergies: : No Known Allergies; iw - PMHx: :28 Diabetes - NIDDM; Hypertension; Thyroid problem; iw - Immunization history:: Client reports receiving the 2nd dose of the Covid vaccine. - Social history:: Smoking status: Patient denies any tobacco usage or history of. ROS: 11:36 Constitutional: Negative for fever, chills, and weight loss, Cardiovascular: Negative jmm for chest pain, palpitations, and edema, Respiratory: Negative for shortness of breath, cough, wheezing, and pleuritic chest pain. 11:36 ENT: Positive for ear pain, sinus congestion, sore throat. 11:36 All other systems are negative. Exam: 11:36 Constitutional: This is a well developed, well nourished patient who is awake, alert, jmm and in no acute distress. Head/Face: atraumatic. Eyes: EOMI, no conjunctival erythema appreciated ENT: Moist Mucus Membranes Neck: Trachea midline, Supple Chest/axilla: Normal chest wall appearance and motion. Cardiovascular: Regular rate and rhythm. No edema appreciated Respiratory: Normal respirations, no respiratory distress appreciated Abdomen/GI: Non distended, soft Back: Normal ROM Skin: General appearance color normal MS/ Extremity: Moves all extremities, no obvious deformities appreciated, no edema noted to the lower extremities Neuro: Awake and alert Psych: Behavior is normal, Mood is normal, Patient is cooperative and pleasant 11:36 ENT: Posterior pharynx: erythema, that is moderate. Vital Signs: 09:25 BP 132 / 79; Pulse 78; Temp 97.8; Pulse Ox 100% ; Weight 68.04 kg; Height 5 ft. 1 in. iw (154.94 cm); 09:25 Body Mass Index 28.34 (68.04 kg, 154.94 cm) MDM: 09:12 Patient medically screened. [facility] 11:36 Data reviewed: vital signs, nurses notes. Counseling: I had a detailed discussion with [facility] the patient and/or guardian regarding: the historical points, exam findings, and any diagnostic results supporting the discharge/admit diagnosis, lab results, radiology results, the need for outpatient follow up, to return to the emergency department if symptoms worsen or persist or if there are any questions or concerns that arise at home. 09/20 09:16 Order name: SARS-COV-2 RT PCR (Document "Date of Onset" if Symptomatic); Complete Time: [facility] 10:33 09/20 09:16 Order name: Influenza Screen (a \\T\\ B); Complete Time: 10:33 [facility] 09/20 09:17 Order name: Strep; Complete Time: 10:03 [facility] 09/20 09:17 Order name: Chest Single View XRAY; Complete Time: 11:28 [facility] 09/20 10:10 Order name: Throat Culture EDMS Administered Medications: No medications were administered Disposition: 18:19 Co-signature as Attending Physician, Steve Kerr MD. rn Disposition Summary: 09/20/21 11:38 Discharge Ordered Location: Home [facility] Condition: Stable [facility] Diagnosis - Acute pharyngitis, unspecified [facility] Followup: [facility] - With: Pop Millan, DO - When: 2 - 3 days - Reason: Recheck today's complaints, Continuance of care, Re-evaluation by your physician Discharge Instructions: - Discharge Summary Sheet [facility] - Pharyngitis [facility] Forms: - Medication Reconciliation Form [facility] - Thank You Letter [facility] - Antibiotic Education [facility] - Prescription Opioid Use [facility] Prescriptions: - cefdinir 300 mg Oral capsule - take 1 capsule by ORAL route every 12 hours for 10 days; 20 capsule; Refills: [facility] 0, Product Selection Permitted Signatures: Dispatcher [employer] EDMS Jorje Faulkner PA PA Yvrose Wayne, PRETTY RN Kerr, Steve, MD MD rn
[2021-09-20 12:12] VITALS: BP 132/79; TEMP 97.8; O2SAT 100
== END 2021-09-20 11:56 | disposition home or self-care (01) ==
LOC: ER 08:59
DX: J02.9 Acute pharyngitis, unspecified (principal); R05.9 Cough, unspecified; I10 Essential (primary) hypertension; E11.9 Type 2 diabetes mellitus without complications; Z20.822 Contact with and (suspected) exposure to COVID-19
CPT/HCPCS: 87070; 87081; 87804 ×2; 71045; 99283; U0003

== ENCOUNTER 2023-08-24 22:07 | Emergency (ER) | payer MEDICARE ==
[2023-08-25 00:25] LABS: Absolute Eosinophils 0.3 K/uL (0-0.5); Absolute Lymphocytes (CBC) 1.8 K/uL (0.7-4.9); Absolute Monocytes 0.6 K/uL (0.1-1.3); Absolute Neutrophil 3.3 K/uL (1.8-8.0); Basophils % 0.7 % (0-1.3); Eosinophils % 4.6 % (0-4.4); Hematocrit 37.3 % (36.0-45.0); Hemoglobin 12.3 g/dL (12.0-15.0); Lymphocytes % 29.8 % (15.3-44.8); MCH 29.8 pg (27.0-35.0); MCV 90.2 fL (80-100); MPV 9.1 fL (7.6-11.3); Monocytes % 9.8 % (3.3-12.3); Neutrophils % 55.1 % (41.7-73.7); Platelets 186 thou/uL (152-406); RBC Red Blood Cell Count 4.13 M/uL (3.86-4.86); Red Cell Distribution Width 15.7 % (12.1-15.2)
[2023-08-25 00:31] LABS: SARS-CoV-2 Antigen CONTROL BLUE LINE VIS/BG OK; SARS-CoV-2 Antigen Rapid Res Negative (Negative)
[2023-08-25] MEDS ORDERED: KETOROLAC 30 MG/ML INJ ONE (00:33)
[2023-08-25] MEDS ORDERED: NA CHLORIDE 0.9% 500 ML ONE (00:34)
[2023-08-25 00:36] LABS: ALT/SGPT 14 U/L (13-56); AST/SGOT 13 U/L (15-37); Albumin 3.5 g/dL (3.4-5.0); Alkaline Phosphatase 133 U/L (45-117); Anion Gap 8.9 mEq/L (5.0-15.0); BUN Blood Urea Nitrogen 14 mg/dL (7-18); Bicarbonate 28 mEq/L (21-32); Bilirubin Total 0.3 mg/dL (0.2-1.0); Globulin 3.5 g/dL (2.3-3.5); Glomerular Filtration Rate 88 ml/min (=/>90); Glucose Level 116 mg/dL (74-106); Lipase 38 U/L (13-75); Magnesium 1.7 mg/dL (1.6-2.4); Potassium 3.9 mEq/L (3.5-5.1); Sodium Level 141 mEq/L (136-145); Troponin High Sensitivity 3.7 pg/mL (<58.9)
[2023-08-25 00:44] LABS: Bilirubin Direct < 0.1 mg/dL (0-0.2); Bilirubin Indirect, Calculated ND mg/dL (0.2-0.8)
[2023-08-25 02:15] LABS: Specific Gravity 1.012 (1.005-1.030); Sqamous Epithelial <5 /HPF (None Seen); Urine Bacteria <20 /HPF (<20); Urine Bilirubin NEGATIVE (Negative); Urine Blood Negative (Negative); Urine Clarity Clear (Clear); Urine Color Light-Yellow (Yellow); Urine Culture Reflex Order NOT NEEDED; Urine Glucose NEGATIVE (Negative); Urine Ketones NEGATIVE (Negative); Urine Micro Reflex YN NO BILL MICROSCOPIC; Urine Mucus Slight /HPF (None Seen); Urine Nitrite NEGATIVE (Negative); Urine Protein NEGATIVE (Negative); Urine RBC None Seen /HPF (None Seen); Urine Urobilinogen Normal (Normal); Urine WBC <5 /HPF (<5); Urine pH 5.5 (5.0-7.0)
--- NOTE | 2023-08-25 05:10 | EDPHYS ---
Physician Documentation [facility] Name: Nicolasa Dooely Age: 78 yrs Sex: Female : 1945 Arrival Date: 08/24/2023 Time: 22:07 Bed 3 Private MD: ED Physician Andre Love HPI: 08/23 22:55 This 78 yrs old Female presents to ER via Ambulatory with complaints of Leg cp Pain, LEG NUMBNESS. 22:55 The patient presents with pain, that is acute, tenderness, weakness, numbness. The cp complaints affect the right leg and left leg. Onset: The symptoms/episode began/occurred 3 day(s) ago. Historical: - Allergies: 22:22 No Known Allergies; vc1 - PMHx: 22:22 Diabetes - NIDDM; Hypertension; Thyroid problem; kidney problems; vc1 - PSHx: 22:22 None; vc1 - Immunization history:: Client reports having NOT received the Covid vaccine. Flu vaccine is not up to date. - Infectious Disease History:: Denies. - Social history:: Smoking status: Patient denies any tobacco usage or history of. ROS: 23:00 Constitutional: Negative for body aches, chills, fever, poor PO intake, cp 23:00 Cardiovascular: Negative for chest pain, edema, palpitations, cp 23:00 Respiratory: Negative for cough, shortness of breath, wheezing, 23:00 Abdomen/GI: Positive for abdominal pain, Negative for vomiting, diarrhea, constipation, 23:00 ENT: Positive for sore throat, Negative for drainage from ear(s), ear pain, difficulty cp swallowing, difficulty handling secretions, 23:00 Neck: Negative for pain with movement, pain at rest, stiffness, 23:00 Back: Positive for pain at rest, pain with movement, cp 23:00 Neuro: Positive for numbness, of the right leg and left leg, Negative for altered mental status, dizziness, headache, 23:00 All other systems are negative, Exam: 23:05 Constitutional: The patient appears in no acute distress, alert, awake, cp non-diaphoretic, non-toxic, well developed, well nourished, uncomfortable, 23:05 Head/Face: Normocephalic, atraumatic. cp 23:05 Eyes: Periorbital structures: appear normal, Conjunctiva: normal, no exudate, no injection, Sclera: no appreciated abnormality, Lids and lashes: appear normal, bilaterally, 23:05 ENT: External ear(s): are unremarkable, Nose: is normal, Mouth: Lips: moist, Oral mucosa: pink and intact, moist, Posterior pharynx: is normal, airway is patent, no erythema, no exudate, 23:05 Neck: ROM/movement: is normal, is supple, without pain, no range of motions limitations, 23:05 Chest/axilla: Inspection: normal, Palpation: is normal, no crepitus, no tenderness, 23:05 Cardiovascular: Rate: normal, Rhythm: regular, Edema: is not appreciated, JVD: is not appreciated, 23:05 Respiratory: the patient does not display signs of respiratory distress, Respirations: normal, no use of accessory muscles, no retractions, labored breathing, is not present, Breath sounds: are clear throughout, no decreased breath sounds, rhonchi, no wheezing, 23:05 Abdomen/GI: Inspection: abdomen appears normal, Palpation: soft, in all quadrants, mild abdominal tenderness, in the umbilical area, right lower quadrant and left lower quadrant, 23:05 Back: pain, that is mild, of the low back area and mid back area, ROM is normal, 08/24 00:28 ECG was reviewed by the Attending Physician. cp Vital Signs: 08/23 22:21 BP 159 / 66; Pulse 68; Resp 18; Temp 97.7; Pulse Ox 100% ; Weight 62.6 kg; Height 5 ft. vc1 1 in. ; Pain 8/10; 23:30 BP 145 / 66; Pulse 65; Resp 17 S; Pulse Ox 100% on R/A; ha1 08/24 00:30 BP 142 / 55; Pulse 60; Resp 17 S; Pulse Ox 96% on R/A; ha1 02:00 BP 142 / 65; Pulse 60; Resp 17 S; Pulse Ox 95% on R/A; ha1 03:00 BP 151 / 69; Pulse 60; Resp 17 S; Pulse Ox 100% on R/A; ha1 04:00 BP 147 / 65; Pulse 60; Resp 18 S; Pulse Ox 100% on R/A; ha1 05:00 BP 155 / 60; Pulse 60; Resp 14 S; Pulse Ox 100% on R/A; ha1 08/23 22:21 Body Mass Index 26.07 (62.60 kg, 154.94 cm) vc1 08/23 22:21 Pain Scale: Adult vc1 MDM: 08/23 22:19 Patient medically screened. cp 08/24 04:50 ED course: EXAM: Extrem Venous W Compress Bossman US Bilateral Lower Extremity Venous sp4 Duplex Doppler HISTORY: Pain COMPARISON: None TECHNIQUE: Grayscale, color Doppler, duplex Doppler, spectral Doppler images and analysis with compression and augmentation of right and left lower extremity veins. FINDINGS: Right and Left common femoral, greater saphenous, femoral, deep (profunda) femoral, popliteal, posterior tibial veins unremarkable without evidence of clot. IMPRESSION: No sonographic evidence of right or left lower extremity DVT. Electronically signed by: Meek RAMOS 08/25/2023 03:43 AM CDT . ED course: EXAM DESCRIPTION: Lower ExtremityArterial Bilat CLINICAL HISTORY: 78 years Female, PAIN COMPARISON: None. TECHNIQUE: Grayscale, color Doppler, and spectral Doppler imaging of the bilateral lower extremity arteries. FINDINGS: Velocities: (All velocities in centimeters per second) Right lower extremityCFA: 108 Proximal SFA: 99 Mid SFA: 90 Distal SFA: 94 Popliteal: 45 SOURCING ASSISTANT: 40 DPA: 43 Left lower extremityCFA: 87 Proximal SFA: 100 Mid SFA: 102 Distal SFA: 61 Popliteal: 50 SOURCING ASSISTANT: 52 DPA: 76 Doppler imaging: Right leg: Multiphasic waveforms throughout the right lower extremity arteries. Left leg: Multiphasic waveforms throughout the left lower extremity arteries. IMPRESSION: No evidence of flow-limiting stenosis in the lower extremity arteries by velocity criteria.. ED course: EXAM DESCRIPTION: Abdomen Pelvis W Contrast CLINICAL HISTORY: back pain;Abd pain COMPARISON: None Available. TECHNIQUE: CT of the abdomen and pelvis performed following IV administration of iodinated contrast. This exam was performed according to our departmental dose-optimization program, which includes automated exposure control, adjustment of the mA and/or kV according to patient size and/or use of iterative reconstruction technique. FINDINGS: Lung Bases: Minimal dependent atelectasis. Partial visualization of pacemaker leads. Bones: Multilevel endplate spondylosis, disc height narrowing, and facet arthropathy. Osteoarthritic change of the hips. Abdomen: Liver: The liver has normal size and decreased density. Gallbladder: Prior cholecystectomy. Spleen, Pancreas, and Adrenal Glands: The spleen, pancreas, and adrenal glands are unremarkable. Kidneys: No hydronephrosis or obstructing calculus. Mildly prominent extrarenal pelves. Vasculature: There aortoiliac atherosclerosis. IVC is unremarkable. The portal vein is patent. The proximal visceral and renal arteries are patent. Stomach: Mild wall thickening of the gastric antrum. Other: No free intraperitoneal air. No free fluid or lymphadenopathy. Tiny fat-containing umbilical hernia. Pelvis: Bladder: Urinary bladder is unremarkable. Bowel: No dilated loops of large or small bowel. Scattered diverticula of the colon. Mild wall thickening of the descending and sigmoid colon. Appendix: Normal appendix. Pelvis:Prior hysterectomy. IMPRESSION: 1. Mild wall thickening of the gastric antrum. This could be seen with gastritis. 2. Mild wall thickening of the descending and sigmoid colon. These findings could be seen with nonspecific colitis. 3. Hepatic steatosis. 4. Diverticulosis without evidence of acute diverticulitis. Electronically signed by: Stefan Patel DO 08/25/2023 03:52 AM CDT. 05:06 Differential diagnosis: contusion, abrasion, tendonitis. Data reviewed: vital signs, sp4 nurses notes, old medical records, lab test result(s), radiologic studies, CT scan, ultrasound. Consideration of Admission/Observation Escalation of care including admission/observation considered. ED course: Patient has signs of gastritis, gastric antrum inflammation also thickening of sigmoid colon consistent with colitis. We will do prescription for omeprazole. Also prescription for Robaxin and tramadol.. Advised patient obtain his nonemergent MRI of the L-spine through her PMD. . 08/23 22:58 Order name: Basic Metabolic Panel; Complete Time: 01: cp 08/24 01:01 Interpretation: Normal except: CL 108; GLUC 116; GFR 88. cp 08/23 22:58 Order name: CBC with Diff; Complete Time: 01: cp 08/24 01:01 Interpretation: Normal except: RDW 15.7; EOSINOPHIL % 4.6. cp 08/23 22:58 Order name: LFT's; Complete Time: 01: cp 08/23 22:58 Order name: Magnesium; Complete Time: 01: cp 08/23 22:58 Order name: Troponin HS; Complete Time: 01: cp 08/23 22:58 Order name: Lipase; Complete Time: 01:01 cp 08/23 22:58 Order name: Urinalysis W/Microscopic; Complete Time: 03:29 cp 08/23 22:58 Order name: Strep cp 08/23 22:58 Order name: Influenza Screen (a \T\ B); Complete Time: 01:01 cp 08/23 22:58 Order name: SARS RAPID; Complete Time: 01:01 cp 08/24 00:35 Order name: Throat Culture EDMS 08/24 01:02 Order name: CT Abd/Pelvis - IV Contrast Only cp 08/24 01:28 Order name: US Extremity Venous W Compression Bossman cp 08/24 01:28 Order name: US Lower Extremity Arterial Bilateral cp 08/23 22:58 Order name: EKG; Complete Time: 22:59 cp 08/23 22:58 Order name: Cardiac monitoring; Complete Time: 00:01 cp 08/23 22:58 Order name: EKG - Nurse/Tech; Complete Time: 00:27 cp 08/23 22:58 Order name: IV Saline Lock; Complete Time: 00:01 cp 08/23 22:58 Order name: Labs collected and sent; Complete Time: 00:01 cp 08/23 22:58 Order name: O2 Per Protocol; Complete Time: 00:01 cp 08/23 22:58 Order name: O2 Sat Monitoring; Complete Time: 00:01 cp EC:28 Rate is 60 beats/min. Rhythm is regular, Paced. QRS interval is prolonged at 166 msec. cp QT interval is normal. T waves are Inverted in leads I, aVL, aVR. Administered Medications: 00:39 Drug: NS 0.9% IV 500 ml IV at 125 ml/hr continuous Route: IV; Rate: 125 ml/hr; Site: ha1 right antecubital; 05:00 Follow up: Response: No adverse reaction; IV Status: Completed infusion; IV Intake: ha1 500ml 00:39 Drug: Ketorolac IVP 10 mg 10 mg IVP once Route: IVP; Site: right antecubital; ha1 03:16 Follow up: Response: No adverse reaction; Marked relief of symptoms ha1 Disposition: 05:06 Co-signature as Attending Physician, Andre Love MD I agree with the assessment sp4 and plan of care. I reviewed the patient's care provided by Advanced Practice Provider \T\ agree w/ the diagnosis \T\ care plan. I personally saw the pt \T\ performed a substantive portion of the visit, incldng all aspects of the (History/Exam/Medical Decision Making). Disposition Summary: 08/25/23 05:10 Discharge Ordered Notes: Location: Home sp4 Problem: new sp4 Symptoms: have improved sp4 Condition: Stable sp4 Diagnosis - Abdominal pain, Generalized sp4 - Acute gastritis sp4 - Lateral leg pain, bilateral leg paresthesia, bilateral lower extremity numbness sp4 and tingling, acute gastritis, acute sigmoid colitis Followup: sp4 - With: Private Physician - When: 7 - 10 days - Reason: Recheck today's complaints Discharge Instructions: - Discharge Summary Sheet sp4 - Gastritis, Adult, [id number] sp4 Forms: - Family Work Release ha1 - Patient Portal Instructions sp4 Prescriptions: - meloxicam 7.5 mg Oral tablet - take 1 tablet ORAL route daily PRN pain; 30 tablet; Refills: 0, Product sp4 Selection Permitted - omeprazole 40 mg Oral capsule,delayed release (e.c.) - take 1 capsule ORAL route daily; 60 capsule; Refills: 0, Product Selection sp4 Permitted - Tramadol 50 mg Oral tablet - take 1 tablet ORAL route every 8 hours as needed; 20 tablet; Refills: 0, sp4 Product Selection Permitted - methocarbamol 750 mg Oral tablet - take 1 tablet ORAL route 4 times per day for 2 days; 60 tablet; Refills: 0, sp4 Product Selection Permitted Signatures: Dispatcher [employer] EDMS Felipe Doan PA PA cp Calcote, Vanessa RN RN vc1 Evelin Warren RN RN ha1 Andre Love MD MD sp4 Corrections: (The following items were deleted from the chart) 08/23 22:59 22:58 BASIC METABOLIC PANEL+C.LAB.BRZ ordered. EDMS EDMS 22:59 22:58 CBC+H.LAB.BRZ ordered. EDMS EDMS 22:59 22:58 HEPATIC FUNCTION+C.LAB.BRZ ordered. EDMS EDMS 22:59 22:58 MAGNESIUM+C.LAB.BRZ ordered. EDMS EDMS 22:59 22:58 Troponin High Sensitivity+C.LAB.BRZ ordered. EDMS EDMS 22:59 22:58 LIPASE+C.LAB.BRZ ordered. EDMS EDMS 22:58 Urinalysis W/Microscopic+U.LAB.BRZ ordered. EDMS EDMS 22:58 Group A Streptococcus Rapid Sc+BA.LAB.BRZ ordered. EDMS EDMS : 22:58 Influenza Screen (A \T\ B)+BA.LAB.BRZ ordered. EDMS EDMS 22:58 SARS-COV-2 Antigen Rapid+I.LAB.BRZ ordered. EDMS EDMS 08/24 01:03 01:03 Abdomen Pelvis W Con+CT.RAD.BRZ ordered. EDMS EDMS 08/25 01:17 08/24 21:22 Constitutional: Negative for fever, chills, and weight loss, sp4 cp
--- NOTE | 2023-08-25 05:10 | ER ---
Nurse's Notes [facility] Name: Nicolasa Dooley Age: 78 yrs Sex: Female : 1945 Arrival Date: 08/24/2023 Time: 22:07 Bed 3 Private MD: Diagnosis: Abdominal pain, Generalized;Acute gastritis;Lateral leg pain, bilateral leg paresthesia, bilateral lower extremity numbness and tingling, acute gastritis, acute sigmoid colitis Presentation: 08/23 22:21 Chief complaint: Patient states: Bilateral leg numbness with swelling to left leg. vc1 Coronavirus screen: At this time, the client does not indicate any symptoms associated with coronavirus-19. Ebola Screen: Patient negative for fever greater than or equal to 101.5 degrees Fahrenheit, and additional compatible Ebola Virus Disease symptoms Patient denies exposure to infectious person. Patient denies travel to an Ebola-affected area in the 21 days before illness onset. No symptoms or risks identified at this time. Initial Sepsis Screen: Does the patient meet any 2 criteria? No. Patient's initial sepsis screen is negative. Does the patient have a suspected source of infection? No. Patient's initial sepsis screen is negative. Risk Assessment: Do you want to hurt yourself or someone else? Patient reports no desire to harm self or others. Onset of symptoms is unknown. 22:21 Method Of Arrival: Ambulatory vc1 22:21 Acuity: SOCO 3 vc1 22:24 Note Pt seen here last week and diagnosed with sciatica. vc1 Triage Assessment: 22:23 General: Appears in no apparent distress. uncomfortable, Behavior is calm, cooperative, vc1 appropriate for age. Pain: Complains of pain in lower back and left leg Pain does not radiate. Pain currently is 8 out of 10 on a pain scale. Neuro: Level of Consciousness is awake, alert, obeys commands, Oriented to person, place, time, situation, Appropriate for age Reports head pressure. Cardiovascular: Patient's skin is warm and dry. Respiratory: Airway is patent Respiratory effort is even, unlabored, Respiratory pattern is regular, symmetrical. Musculoskeletal: Reports numbness in right leg and left leg pain in left leg. Historical: - Allergies: 22:22 No Known Allergies; vc1 - PMHx: 22:22 Diabetes - NIDDM; Hypertension; Thyroid problem; kidney problems; vc1 - PSHx: 22:22 None; vc1 - Immunization history:: Client reports having NOT received the Covid vaccine. Flu vaccine is not up to date. - Infectious Disease History:: Denies. - Social history:: Smoking status: Patient denies any tobacco usage or history of. Screenin/30 01:26 [facility] ED Fall Risk Assessment (Adult) History of falling in the last 3 months, ha1 including since admission No falls in past 3 months (0 pts) Confusion or Disorientation No (0 pts) Intoxicated or Sedated No (0 pts) Impaired Gait No (0 pts) Mobility Assist Device Used No (0 pt) Altered Elimination No (0 pt) Score/Fall Risk Level 0 - 2 = Low Risk Oriented to surroundings, Maintained a safe environment, Educated pt \T\ family on fall prevention, incl call for assistance when getting out of bed. Abuse screen: Denies threats or abuse. Denies injuries from another. Nutritional screening: No deficits noted. Tuberculosis screening: No symptoms or risk factors identified. Assessment: 00:00 General: Appears comfortable, Behavior is calm, cooperative. Pain: Complains of pain in ha1 right leg and left leg Pain does not radiate. Pain currently is 5 out of 10 on a pain scale. Quality of pain is described as aching, Pain began suddenly. Neuro: Level of Consciousness is awake, alert, obeys commands, Oriented to person, place, time, situation. Neuro: Reports paresthesias in right leg and left leg since yesterday. Cardiovascular: Capillary refill < 3 seconds Patient's skin is warm and dry. Respiratory: Airway is patent Trachea midline Respiratory effort is even, unlabored, Respiratory pattern is regular, symmetrical. GI: Abdomen is round non-distended. : No signs and/or symptoms were reported regarding the genitourinary system. Derm: Skin is pink, warm \T\ dry. Musculoskeletal: Circulation, motion, and sensation intact. Reports pain in right leg and left leg. 01:00 Reassessment: Patient and/or family updated on plan of care and expected duration. Pain ha1 level reassessed. Patient is alert, oriented x 3, equal unlabored respirations, skin warm/dry/pink. 02:00 Reassessment: Patient and/or family updated on plan of care and expected duration. Pain ha1 level reassessed. Patient is alert, oriented x 3, equal unlabored respirations, skin warm/dry/pink. 03:00 Reassessment: Patient and/or family updated on plan of care and expected duration. Pain ha1 level reassessed. Patient is alert, oriented x 3, equal unlabored respirations, skin warm/dry/pink. Vital Signs: 08/23 22:21 BP 159 / 66; Pulse 68; Resp 18; Temp 97.7; Pulse Ox 100% ; Weight 62.6 kg; Height 5 ft. vc1 1 in. ; Pain 8/10; 23:30 BP 145 / 66; Pulse 65; Resp 17 S; Pulse Ox 100% on R/A; ha1 08/24 00:30 BP 142 / 55; Pulse 60; Resp 17 S; Pulse Ox 96% on R/A; ha1 02:00 BP 142 / 65; Pulse 60; Resp 17 S; Pulse Ox 95% on R/A; ha1 03:00 BP 151 / 69; Pulse 60; Resp 17 S; Pulse Ox 100% on R/A; ha1 04:00 BP 147 / 65; Pulse 60; Resp 18 S; Pulse Ox 100% on R/A; ha1 05:00 BP 155 / 60; Pulse 60; Resp 14 S; Pulse Ox 100% on R/A; ha1 08/23 22:21 Body Mass Index 26.07 (62.60 kg, 154.94 cm) vc1 08/23 22:21 Pain Scale: Adult vc1 ED Course: 08/23 22:11 Patient arrived in ED. gm2 22:19 Felipe Doan PA is PHCP. cp 22:19 Andre Love MD is Attending Physician. cp 22:22 Triage completed. vc1 22:23 Arm band placed on right wrist. vc1 23:30 Patient has correct armband on for positive identification. Placed in gown. Bed in low ha1 position. Call light in reach. Side rails up X 1. 23:30 Client placed on continuous cardiac and pulse oximetry monitoring. NIBP monitoring ha1 applied. lunchroom monitor on. Door closed. Noise minimized. Warm blanket given. Pillow given. 23:38 Inserted saline lock: 20 gauge in right antecubital area, using aseptic technique. ha1 Blood collected. 08/24 00:01 SARS RAPID Sent. ha1 00:01 Influenza Screen (a \T\ B) Sent. ha1 00:01 Strep Sent. ha1 00:01 Basic Metabolic Panel Sent. ha1 00:01 CBC with Diff Sent. ha1 00:01 LFT's Sent. ha1 00:01 Magnesium Sent. ha1 00:01 Troponin HS Sent. ha1 02:22 US Extremity Venous W Compression Bossman In Process Unspecified. EDMS 02:22 US Lower Extremity Arterial Bilateral In Process Unspecified. EDMS 02:25 CT Abd/Pelvis - IV Contrast Only In Process Unspecified. EDMS 05:30 Provided Education on: medication administration . ha1 05:30 No provider procedures requiring assistance completed. ha1 05:30 IV discontinued, intact, bleeding controlled, No redness/swelling at site. Pressure ha1 dressing applied. Administered Medications: 00:39 Drug: NS 0.9% IV 500 ml IV at 125 ml/hr continuous Route: IV; Rate: 125 ml/hr; Site: ha1 right antecubital; 05:00 Follow up: Response: No adverse reaction; IV Status: Completed infusion; IV Intake: ha1 500ml 00:39 Drug: Ketorolac IVP 10 mg 10 mg IVP once Route: IVP; Site: right antecubital; ha1 03:16 Follow up: Response: No adverse reaction; Marked relief of symptoms ha1 Medication: 01:27 VIS not applicable for this client. ha1 Intake: 05:00 IV: 500ml; Total: 500ml. ha1 Outcome: 05:10 Discharge ordered by MD. connelly 05:30 Discharged to home ambulatory, with family, ha1 05:30 Condition: stable 05:30 Discharge instructions given to patient, family, Instructed on discharge instructions, follow up and referral plans. medication usage, Demonstrated understanding of instructions, follow-up care, medications, 05:34 Patient left the ED. ha1 Signatures: Dispatcher [employer] EDNJ Felipe Doan PA PA cp Calcote, Vanessa RN RN vc1 Evelin Warren RN RN ha1 Andre Love MD MD sp4 Azeb Stephenson 2
[2023-08-25 05:49] VITALS: BP 151/69; TEMP 97.7; O2SAT 100
--- NOTE | 2023-08-25 11:29 | RAD REPORT ---
EXAM DESCRIPTION: US - Lower Extremity Arterial Bilat - 08/25/2023 2:20 am CLINICAL HISTORY: 78 years Female, PAIN COMPARISON: None. TECHNIQUE: Grayscale, color Doppler, and spectral Doppler imaging of the bilateral lower extremity a rteries. FINDINGS: Velocities: (All velocities in centimeters per second) Right lower extremity- GRINDING OPERATOR: 108 Proximal SFA: 99 Mid SFA: 90 Distal SFA: 94 Popliteal: 45 CAMP COORDINATOR: 40 DPA: 43 Left lower extremity- GRINDING OPERATOR: 87 Proximal SFA: 100 Mid SFA: 102 Distal SFA: 61 Popliteal: 50 CAMP COORDINATOR: 52 DPA: 76 Doppler imaging: Right leg: Multiphasic waveforms throughout the right lower extremity arteries. Left leg: Multiphasic waveforms throughout the left lower extremity arteries. IMPRESSION: No evidence of flow-limiting stenosis in the lower extremity arteries by velocity criter ia. Electronically signed by: Stefan Patel DO 08/25/2023 03:47 AM CDT M Due to temporary technical issues with the PACS/Fluency reporting system, reports are being signed by the in house radiologists without review as a courtesy to insure prompt reporting. The interpreting radiologist is fully responsible for the content of the report.
--- NOTE | 2023-08-25 14:45 | RAD REPORT ---
EXAM DESCRIPTION: US - Extrem Venous W Compress Bossman - 08/25/2023 2:20 am CLINICAL HISTORY: Pain COMPARISON: None TECHNIQUE: Grayscale, color Doppler, duplex Doppler, spectral Doppler images and analysis with compr ession and augmentation of right and left lower extremity veins. FINDINGS: Right and Left common femoral, greater saphenous, femoral, deep (profunda) femoral, poplit eal, posterior tibial veins unremarkable without evidence of clot. IMPRESSION: No sonographic evidence of right or left lower extremity DVT. Electronically signed by: Earnest Payne MD 08/25/2023 03:43 AM CDT Due to temporary technical issues with the PACS/Fluency reporting system, reports are being signed by the in house radiologists without review as a courtesy to insure prompt reporting. The interpreting radiologist is fully responsible for the content of the report.
--- NOTE | 2023-08-25 16:49 | RAD REPORT ---
EXAM DESCRIPTION: CT - Abdomen Pelvis W Contrast - 08/25/2023 6:35 am CLINICAL HISTORY: Back pain;Abd pain COMPARISON: None Available. TECHNIQUE: CT of the abdomen and pelvis performed following IV administration of iodinated contras t. This exam was performed according to our departmental dose-optimization program, which includes au tomated exposure control, adjustment of the mA and/or kV according to patient size and/or use of iter ative reconstruction technique. FINDINGS: Lung Bases: Minimal dependent atelectasis. Partial visualization of pacemaker leads. Bones: Multilevel endplate spondylosis, disc height narrowing, and facet arthropathy. Osteoarthritic change of the hips. Abdomen: Liver: The liver has normal size and decreased density. Gallbladder: Prior cholecystectomy. Spleen, Pancreas, and Adrenal Glands: The spleen, pancreas, and adrenal glands are unremarkable. Kidneys: No hydronephrosis or obstructing calculus. Mildly prominent extrarenal pelves. Vasculature: There aortoiliac atherosclerosis. IVC is unremarkable. The portal vein is patent. The proximal visceral and renal arteries are patent. Stomach: Mild wall thickening of the gastric antrum. Other: No free intraperitoneal air. No free fluid or lymphadenopathy. Tiny fat-containing umbilic al hernia. Pelvis: Bladder: Urinary bladder is unremarkable. Bowel: No dilated loops of large or small bowel. Scattered diverticula of the colon. Mild wall thic kening of the descending and sigmoid colon. Appendix: Normal appendix. Pelvis: Prior hysterectomy. IMPRESSION: 1. Mild wall thickening of the gastric antrum. This could be seen with gastritis. 2. Mild wall thickening of the descending and sigmoid colon. These findings could be seen with nons pecific colitis. 3. Hepatic steatosis. 4. Diverticulosis without evidence of acute diverticulitis. Electronically signed by: Stefan Patel DO 08/25/2023 03:52 AM CDT M Due to temporary technical issues with the PACS/Fluency reporting system, reports are being signed by the in house radiologists without review as a courtesy to insure prompt reporting. The interpreting radiologist is fully responsible for the content of the report.
--- NOTE | 2023-08-26 13:12 | EKG ---
Test Date: 2023-08-25 Test Time: 00:23:56 Taxation Accountant: MONICA MEASUREMENT RESULTS: Intervals: Rate: 60 DE: 202 QRSD: 166 QT: 474 QTc: 474 [place]: P: 55 DE: 202 QRS: -87 T: 99 INTERPRETIVE STATEMENTS: AV dual-paced rhythm Abnormal ECG Compared to ECG 03/11/2020 20:28:57 Atrial-paced complex(es) or rhythm no longer present T-wave abnormality no longer present Possible ischemia no longer present Electronically Signed On 08-26-23 13:07:23 CDT by Glynn Boyd
== END 2023-08-25 05:34 | disposition home or self-care (01) ==
LOC: ER 22:07
DX: K29.00 Acute gastritis without bleeding (principal); K52.9 Noninfective gastroenteritis and colitis, unspecified; R20.0 Anesthesia of skin; R20.2 Paresthesia of skin; Z11.52 Encounter for screening for COVID-19; Z28.310 Unvaccinated for COVID-19
CPT/HCPCS: 96361; 93005; 87070; 85025; 81001; 80048; 36415; 83735; 80076; 87081; 84484; 83690; 87804 ×2; 74177; 93925; 93970; 96374; 99285; 87811; Q9967; J7040